=== PATIENT | female | born 1965 | race Caucasian/White ===

== ENCOUNTER 2018-03-17 13:17 | Emergency (ER) | payer BC, OTHER, SELFPAY ==
[2018-03-17] MEDS ORDERED: TORAdol 30 mg Injection IM ONE (13:48)
[2018-03-17] MEDS ORDERED: Norflex 60 MG/2 ML IM ONE (13:48)
[2018-03-17] MEDS ORDERED: TORAdol 30 mg Injection ONE (13:54)
--- NOTE | 2018-03-17 13:54 | ERPHSYRPT ---
- History of Present Illness Time Seen by Provider: 03/17/18 13:30 Source: patient Exam Limitations: clinical condition Physician History: PATIENT COMPLAINS OF NECK AND UPPER BACK PAIN X 3 WEEKS, PROGRESSIVELY WORSE. HAS RADIATION OF PAIN FROM NECK DOWN HER LEFT ARM. DENIES HISTORY OF TRAUMA OR INJURY. PAIN EXACERBATED UPON BENDING AND TWISTING OF TORSO. Timing/Duration: week(s) (3) Method of Injury: other (DENIES INJURY) Quality: sharp Back Pain Location: C-spine, T-spine Severity of Pain-Max: moderate Severity of Pain-Current: moderate Modifying Factors: Improves With: movement Associated Symptoms: denies symptoms Previous symptoms: same symptoms as today Allergies/Adverse Reactions: Penicillins Allergy (Verified 03/17/18 14:00) - Review of Systems Constitutional: No Fever, No Chills Eyes: No Symptoms Ears, Nose, & Throat: No Symptoms Respiratory: No Cough, No Dyspnea Cardiac: No Chest Pain, No Edema, No Syncope Abdominal/Gastrointestinal: No Abdominal Pain, No Nausea, No Vomiting, No Diarrhea Genitourinary Symptoms: No Dysuria Musculoskeletal: Back Pain, Neck Pain Skin: No Rash Neurological: No Dizziness, No Focal Weakness, No Sensory Changes Psychological: No Symptoms Endocrine: No Symptoms All Other Systems: Reviewed and Negative - Nursing Vital Signs Nursing Vital Signs: Initial Vital Signs Temperature 97 F 03/17/18 13:37 Pulse Rate 87 03/17/18 13:37 Respiratory Rate 18 03/17/18 13:37 Blood Pressure 151/88 03/17/18 13:37 O2 Sat by Pulse Oximetry 99 03/17/18 13:37 Pain Scale Pain Intensity [] 8 Pain Intensity 6 - Physical Exam General Appearance: no apparent distress, alert Neck Exam: normal inspection, supple, other (THERE IS MODERATE POST CERVICAL SPINAL TENDERNESS) Respiratory Exam: normal breath sounds Cardiovascular Exam: regular rate/rhythm, normal heart sounds Back Exam: normal inspection, normal range of motion, decreased range of motion , muscle spasm (THERE IS PARASPINAL THORACIC TENDERNESS T-2 TO T-6) Peripheral Pulses: carotid (R): 2+, carotid (L): 2+, femoral (R): 2+, femoral (L ): 2+, dorsalis-pedis (R): 2+, dorsalis-pedis (L): 2+ Neurologic Exam: alert, oriented x 3, 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 SMALL OSTEOPHYTES ARE SEEN C5-C7, SMALL OSTEOPHYTES C5-C6) Thoracic Spine CT Interpretation: Tele-radiologist Report (MINIMAL MULTILEVELDEGENERATIVE DISC AND SPINAL DISEASE, THERE IS A BROAD BASED OSSTEOPHYTE AT T-11 TO T12) Ordered Tests: Active Orders 24 hr Category Date Time Status CERVICAL SPINE WO CONTRAST [CT] Stat Exams 03/17/18 13:47 Taken THORACIC SPINE W/O CONTRAST [CT] Stat Exams 03/17/18 13:49 Taken Medication Summary Discontinued Medications Generic Name Dose Route Start Last Admin Trade Name Freq PRN Reason Stop Dose Admin Ketorolac Tromethamine 60 mg 03/17/18 13:48 03/17/18 14:02 Toradol 30 Mg Injection IM 03/17/18 13:49 60 mg STAT ONE Administration Ketorolac Tromethamine Confirm 03/17/18 13:54 Toradol 30 Mg Injection Administered 03/17/18 13:55 Dose 60 mg .ROUTE .STK-MED ONE Morphine Sulfate 4 mg 03/17/18 16:09 03/17/18 16:22 Morphine Sulfate 4 Mg Inj IM 03/17/18 16:10 4 mg STAT ONE Administration Morphine Sulfate Confirm 03/17/18 16:20 Morphine Sulfate 4 Mg Inj Administered 03/17/18 16:21 Dose 4 mg .ROUTE .STK-MED ONE Orphenadrine Citrate 60 mg 03/17/18 13:48 03/17/18 14:03 Norflex 60 Mg/2 Ml IM 03/17/18 13:49 60 mg STAT ONE Administration Orphenadrine Citrate Confirm 03/17/18 13:55 Norflex 60 Mg/2 Ml Administered 03/17/18 13:56 Dose 60 mg .ROUTE .STK-MED ONE Promethazine HCl 25 mg 03/17/18 16:09 03/17/18 16:22 Phenergan 25 Mg Inj IM 03/17/18 16:10 25 mg STAT ONE Administration Promethazine HCl Confirm 03/17/18 16:19 Phenergan 25 Mg Inj Administered 03/17/18 16:20 Dose 25 mg .ROUTE .STK-MED ONE - Progress Progress: improved, pain not gone completely Progress Note: 03/17/18 16:14 TORADOL 60MG IM, NORFLEX 60MG IM 03/17/18 16:16 Counseled pt/family regarding: diagnosis, need for follow-up - Departure Time of Disposition: 16:45 Departure Disposition: Home Clinical Impression: CERVICAL SPINE DEGENERATIVE DISC DISEASE, THORACIC SPINE DEGENERATIVE ADRIAN Condition: Stable Critical Care Time: No Referrals: RUT MAYES [Primary Care Provider] - Additional Instructions: FOLLOWUP WITH YOUR FAMILY PHYSICIAN FOR EVALUATION, PHYSICAL THERAPY. TORADOL 10MG EVERY 6 HOURS NEEDED ALONG WITH NORFLEX 100MG TWICE DAILY FOR MUSCLE SPASM. Prescriptions: Ketorolac Tromethamine [Toradol] 10 mg PO Q6HPRN PRN #20 tablet PRN Reason: Pain Orphenadrine Citrate 100 mg [Norflex 100 MG Tablet] 100 mg PO BID PRN #10 tab PRN Reason: Muscle Spasms
[2018-03-17] MEDS ORDERED: Norflex 60 MG/2 ML ONE (13:55)
[2018-03-17] MEDS ORDERED: Phenergan 25 MG INJ IM ONE (16:09)
[2018-03-17] MEDS ORDERED: MORPHINE SULFATE 4 MG INJ IM ONE (16:09)
[2018-03-17] MEDS ORDERED: Phenergan 25 MG INJ ONE (16:19)
[2018-03-17] MEDS ORDERED: MORPHINE SULFATE 4 MG INJ ONE (16:20)
[2018-03-17 16:45] VITALS: BP 133/80; PULSE 82; O2SAT 99
--- NOTE | 2018-03-17 20:40 | XRAY ---
Indication: Neck pain 3 weeks. No known injury. Multiple contiguous axial images obtained through the cervical spine. Sagittal and coronal reformatted images obtained. Comparison: Cervical radiograph January 30, 2007. Axial images negative for acute fracture, suspicious bony lesions, or spinal canal stenosis. There is now mild C5-C7 degenerative endplate spurring. Sagittal and coronal reformatted images demonstrates new cervical lordotic reversal, positional versus paraspinal spasm. New C5-C6 disc space narrowing. No acute compression fracture, subluxation, or jumped facet. Normal-appearing craniocervical junction. Visualized noncontrasted soft tissues demonstrates minimal right ethmoid and right maxillary sinus disease. Base of the brain and lung apices unremarkable. Impression: 1. New C5-C7 degenerative disc disease and cervical lordotic reversal. 2. Remaining CT cervical spine negative. 3. Incidental paranasal sinus disease. Comment: Preliminary interpretation was made by [facility]. No discrepancy. CTDI 66.59
--- NOTE | 2018-03-17 20:44 | XRAY ---
Indication: Upper back pain 3 weeks. No known injury. Multiple contiguous axial images obtained through the thoracic spine. Sagittal and coronal reformatted images obtained. Comparison: None. Axial images negative for acute fracture, suspicious bony lesions, or spinal canal stenosis. Old right 12 rib fracture. Minimal multilevel degenerative endplate spurring. Sagittal and coronal reformatted images demonstrates normal alignment with vertebral body heights and disc spaces maintained. No acute compression fracture or subluxation. No acute compression fracture, subluxation, or jumped facet. Visualized noncontrasted soft tissues demonstrates mild bilateral dependent atelectasis and right posterior gutter calcified granuloma. Impression: 1. Minimal multilevel degenerative spondylosis and old right 12 rib fracture. 2. Remaining CT thoracic spine negative. Comment: Preliminary interpretation was made by [facility]. No discrepancy. CTDI 66.59
== END 2018-03-17 16:43 | disposition home or self-care (01) ==
LOC: ED 13:17
DX: M50.320 Other cervical disc degeneration, mid-cervical region, unspecified level (principal); M54.2 Cervicalgia; M54.9 Dorsalgia, unspecified
CPT/HCPCS: 72125; 72128; 96372; 99284; J1885; J2270; J2360; J2550

== ENCOUNTER 2018-05-27 15:55 | Emergency (ER) | payer OTHER ==
[2018-05-27 16:09] VITALS: O2SAT 99
[2018-05-27] MEDS ORDERED: Sensorcaine 0.25% 10 ML ONE (16:11)
[2018-05-27] MEDS ORDERED: BACIGUENT PACKET ONE (16:11)
[2018-05-27] MEDS: MARCAINE 0.25% PF/ EPI 1:200,000 IJ ONE (16:14)
--- NOTE | 2018-05-27 16:14 | ERPHSYRPT ---
- History of Present Illness Time Seen by Provider: 05/27/18 15:57 Source: patient Exam Limitations: no limitations Patient Subjective Stated Complaint: Cut right hand pointer finger on a broad head arrow Triage Nursing Assessment: Pt c/o of a 2cm laceration to the right pointer finger above the top knuckle, cut on a broad head arrow, vitals wnl, not bleeding at this time, rates pain 3/10, denies any other problems Physician History: accidently cut distal phalanx right index finger on paula arrow at home; no other injuries or complaints; immun up to date; right handed; no other injury or complaints Occurred: just prior to arrival, this afternoon Method of Injury: incised Quality: constant, aching Severity of Pain-Max: moderate Severity of Pain-Current: mild Extremities Pain Location: 2nd finger: right (distal phalanx) Modifying Factors: Improves With: nothing Associated Symptoms: none Allergies/Adverse Reactions: Penicillins Allergy (Verified 05/27/18 16:08) codeine Adverse Reaction (Verified 05/27/18 16:10) Hx Tetanus, Diphtheria Vaccination/Date Given: No - Review of Systems Constitutional: No Symptoms Eyes: No Symptoms Ears, Nose, & Throat: No Symptoms Respiratory: No Cough, No Dyspnea, No Wheezing Cardiac: No Chest Pain, No Palpitations, No Syncope Abdominal/Gastrointestinal: No Abdominal Pain, No Nausea, No Vomiting, No Diarrhea Genitourinary Symptoms: No Symptoms Musculoskeletal: Injury (lac left distal index finger) Skin: No Symptoms Neurological: No Symptoms Psychological: No Symptoms - Past Medical History Pertinent Past Medical History: Yes Neurological History: Migraines Cardiac History: High Cholesterol, Hypertension Respiratory History: Bronchitis Endocrine Medical History: Diabetes Type II Musculoskeletal History: Fractures Other Medical History: Multiple L MT fractures. - Past Surgical History Past Surgical History: Yes Female Surgical History: Tubal Ligation Other Surgical History: sinus - Social History Smoking Status: Never smoker Exposure to second hand smoke: No Alcohol Use: None Drug Use: none Patient Lives Alone: No Significant Family History: diabetes - Female History Hx Now: No (tubal) - Nursing Vital Signs Nursing Vital Signs: Initial Vital Signs Temperature 97.8 F 05/27/18 15:59 Pulse Rate 85 05/27/18 15:59 Blood Pressure 122/85 05/27/18 15:59 O2 Sat by Pulse Oximetry 99 05/27/18 15:59 Pain Scale Pain Intensity 3 - Physical Exam General Appearance: mild distress, alert Shoulder Exam: normal inspection, non-tender, no evidence of injury, normal ROM Elbow/Forearm Exam: normal inspection, non-tender, no evidence of injury, normal ROM Wrist Exam: normal inspection, non-tender, no evidence of injury, normal ROM Hand Exam: non-tender, no evidence of injury, normal ROM, laceration (right index finger distal 2.6 cm), No normal inspection (except for 2.0 cm lac to distal right index finger), No bone tenderness, No deformity, No infection Neuro/Tendon Exam: normal sensation, normal motor functions, normal tendon functions, responds to pain, no evidence tendon injury Mental Status Exam: alert, oriented x 3, cooperative Skin Exam: normal color, warm, dry, laceration (right index finger distal 2.6 cm ), No rash SpO2 Interpretation: normal SpO2: 99 O2 Delivery: Room Air Procedures - Laceration/Wound Repair Right Lateral Distal Finger Wound Location: Right, hand (distal right index finger) Wound Length (cm): 2.6 Wound's Depth, Shape: linear, into subcut Wound Explored: clean Irrigated: Yes Hibiclens Prep: Yes Anesthesia: marcaine 0.25 (digital block) Volume Anesthetic (ccs): 5 Wound Repaired With: sutures Suture Size/Type: 4-0 Number of Sutures: 4 Layer Closure?: No Sterile Dressing Applied?: Yes Splint Applied?: No Sling Applied?: No - Course Nursing assessment & vital signs reviewed: Yes Ordered Tests: Active Orders 24 hr Category Date Time Status Prepare for Sutures STAT Care 05/27/18 16:08 Active Sutures STAT Care 05/27/18 16:09 Active Wound Care STAT Care 05/27/18 16:08 Active Medication Summary Discontinued Medications Generic Name Dose Route Start Last Admin Trade Name Freq PRN Reason Stop Dose Admin Bacitracin Zinc 0.9 gm 05/27/18 16:08 Baciguent Packet TP 05/27/18 16:09 STAT ONE Bacitracin Zinc Confirm 05/27/18 16:11 Baciguent Packet Administered 05/27/18 16:12 Dose 1 gm .ROUTE .STK-MED ONE Bupivacaine HCl Confirm 05/27/18 16:11 Sensorcaine 0.25% 10 Ml Administered 05/27/18 16:12 Dose 10 ml .ROUTE .STK-MED ONE Bupivacaine HCl 5 ml 05/27/18 16:12 05/27/18 16:21 Sensorcaine 0.25% 10 Ml IJ 05/27/18 16:13 5 ml STAT ONE Administration Bupivacaine HCl/Epinephrine Bitart 5 ml 05/27/18 16:08 05/27/18 16:14 Marcaine 0.25% Pf/ Epi 1:200,000 IJ 05/27/18 16:09 Not Given STAT ONE - Progress Progress: improved Progress Note: 05/27/18 16:44 good anesthesia with digital block; instructions given Counseled pt/family regarding: diagnosis, need for follow-up - Departure Time of Disposition: 16:44 Departure Disposition: Home Clinical Impression: 2.6 cm laceration distal right index fin Condition: Stable Critical Care Time: No Referrals: QUETA OJEDA [Primary Care Provider] - Instructions: Laceration Repair With Stitches (DC) Additional Instructions: clean and dry; SR 7 days; bacitracin Follow-up with family doctor as directed. Call for appointment. Return if any problems. If you smoke please stop. Call or follow up with your family doctor for assistance if you need it to stop. Please wear your seatbelt when driving. Have a nice day. Thank you for allowing us to participate in your care today. :o) Dr Raphael Belle
[2018-05-27] MEDS: Sensorcaine 0.25% 10 ML IJ ONE (16:21)
[2018-05-27 16:47] VITALS: BP 110/75; PULSE 81
[2018-05-27] MEDS: BACIGUENT PACKET TP ONE (16:51)
== END 2018-05-27 16:51 | disposition home or self-care (01) ==
LOC: ED 15:55
DX: S61.210A Laceration without foreign body of right index finger without damage to nail, initial encounter (principal); W26.8XXA Contact with other sharp object(s), not elsewhere classified, initial encounter; E11.9 Type 2 diabetes mellitus without complications; E78.00 Pure hypercholesterolemia, unspecified; I10 Essential (primary) hypertension
CPT/HCPCS: 12002; 96372; 99284; A9270-GY

== ENCOUNTER 2018-06-07 15:20 | Emergency (ER) | payer OTHER ==
[2018-06-07] MEDS ORDERED: Norco 10/325 MG Tablet PO ONE (16:18)
[2018-06-07] MEDS ORDERED: Norco 10/325 MG Tablet ONE (16:20)
[2018-06-07 17:12] VITALS: BP 163/104; PULSE 80; O2SAT 99
--- NOTE | 2018-06-07 17:16 | XRAY ---
Indication: Pain following fall. Comparison: June 05, 2017. 3 views of the left ankle demonstrates soft tissue swelling and minimally displaced corner fracture involving the distal tibia posteriorly of uncertain chronicity. Elsewhere small heel spurs and old 2nd/3rd/5th metatarsal shaft fractures. No other bony, articular, or soft tissue abnormalities.
--- NOTE | 2018-06-07 17:18 | XRAY ---
Indication: Pain following fall. Comparison: None 2 views of the left lower leg demonstrates nondisplaced/non-angulated acute spiral fracture involving the proximal fibular shaft. Ankle/foot reported separately.
--- NOTE | 2018-06-07 17:19 | XRAY ---
Indication: Pain following fall. Comparison: June 05, 2017. 3 nonweightbearing views of the left foot demonstrates new minimally displaced corner fracture involving the distal tibia posteriorly of uncertain chronicity. Stable small heel spurs and old 2nd/5th metatarsal shaft fractures with new finding old 3rd metatarsal shaft fracture. No other bony, articular, or soft tissue abnormalities.
--- NOTE | 2018-06-07 17:59 | ERPHSYRPT ---
- History of Present Illness Time Seen by Provider: 06/07/18 15:35 Source: patient Exam Limitations: clinical condition Patient Subjective Stated Complaint: pt states was walking down a ramp on a trailer and slipped. she said she fell onto her bottom, catching herself with her left hand. left foot was turned under her bottom, states pain radiates up her calf Triage Nursing Assessment: pt present to ED in a wheelchair, with walking boot in place. bruising noted to left inner ankle with small abrasion noted. 2 small abrasions noted to left thumb. no obvious deformity noted to foot or ankle Physician History: PATIENT WITH A HISTORY OF TYPE 2 DIABETES, HYPERTENSION, AND DEPRESSION FELL WHILE WALKING DOWN RAMP SUSTAINED INJURY TO LEFT ANKLE AND DESIR. HAS SEVERE PAIN DISCOMFORT, UNABLE TO BEAR WEIGHT. DENIES ASSOCIATED HEAD, NECK OR BACK INJURY. Occurred: just prior to arrival Reason for Fall: slipped Injuries/Pain Location: lower extremity Loss of Consciousness: no loss of consciousness Quality: sharpness, throbbing Severity of Pain-Max: moderate Severity of Pain-Current: moderate Modifying Factors: Improves With: movement Allergies/Adverse Reactions: Penicillins Allergy (Verified 05/27/18 16:08) codeine Adverse Reaction (Verified 05/27/18 16:10) Home Medications: Dulaglutide [Trulicity] 0.75 mg SQ BID 06/07/18 [History] Duloxetine HCl [Cymbalta] 60 mg PO HS 06/07/18 [History] Furosemide 20 mg [Lasix 20 mg] 20 mg PO DAILY 06/07/18 [History] Lisinopril 40 mg PO DAILY 06/07/18 [History] Metformin HCl [Glucophage] 1,000 mg PO BID 06/07/18 [History] Potassium Chloride 10 Meq Tab* [Klor Con 10 MEQ] 10 meq PO DAILY 06/07/18 [ History] Hx Tetanus, Diphtheria Vaccination/Date Given: No Hx Influenza Vaccination/Date Given: Yes Hx Pneumococcal Vaccination/Date Given: No Immunizations Up to Date: Yes - Review of Systems Constitutional: No Symptoms Musculoskeletal: Injury, Joint Pain, Joint Swelling Neurological: No Symptoms Psychological: No Symptoms - Past Medical History Pertinent Past Medical History: Yes Neurological History: Migraines Cardiac History: High Cholesterol, Hypertension Respiratory History: Bronchitis Endocrine Medical History: Diabetes Type II Musculoskeletal History: Fractures GI Medical History: No Pertinent History History: No Pertinent History Psycho-Social History: Depression Female Reproductive Disorders: No Pertinent History Other Medical History: Multiple L MT fractures. - Past Surgical History Past Surgical History: Yes Female Surgical History: Tubal Ligation Other Surgical History: sinus - Social History Smoking Status: Never smoker Exposure to second hand smoke: No Alcohol Use: None Drug Use: none Patient Lives Alone: No Significant Family History: diabetes - Female History Hx Now: No - Nursing Vital Signs Nursing Vital Signs: Initial Vital Signs Temperature 98.1 F 06/07/18 15:20 Pulse Rate 75 06/07/18 15:20 Respiratory Rate 18 06/07/18 15:20 Blood Pressure 150/105 06/07/18 15:20 O2 Sat by Pulse Oximetry 98 06/07/18 15:20 Pain Scale Pain Intensity 10 - Physical Exam General Appearance: mild distress Back Exam: normal inspection Extremity Exam: joint swelling, bony point tenderness, swelling, tenderness ( TENDERNESS OVER LEFT FIBULAR HEAD, NO ECCHYMOSIS OR DEFORMITY), other (RIGHT ANKLE FULL RANGE OF MOTION WITH TENDERNESS LEFT MEDIAL MALLEOLUS) Peripheral Pulses: carotid (R): 2+, carotid (L): 2+, femoral (R): 2+, femoral (L ): 2+, dorsalis-pedis (R): 2+, dorsalis-pedis (L): 2+ Neurologic Exam: alert, oriented x 3 SpO2 Interpretation: normal SpO2: 99 Ordered Tests: Active Orders 24 hr Category Date Time Status Crutches STAT Care 06/07/18 17:51 Ordered Immobilizer STAT Care 06/07/18 17:52 Ordered Splint STAT Care 06/07/18 17:52 Ordered ANKLE (3 VIEWS) Stat Exams 06/07/18 16:33 Completed FOOT (MINIMUM 3 VIEWS) Stat Exams 06/07/18 16:33 Completed LOWER LEG Stat Exams 06/07/18 16:29 Completed Medication Summary Discontinued Medications Generic Name Dose Route Start Last Admin Trade Name Freq PRN Reason Stop Dose Admin Hydrocodone Bitart/Acetaminophen 1 tab 06/07/18 16:18 06/07/18 16:21 [place] 10/325 Mg Tablet PO 06/07/18 16:19 1 tab STAT ONE Administration Hydrocodone Bitart/Acetaminophen Confirm 06/07/18 16:20 [place] 10/325 Mg Tablet Administered 06/07/18 16:21 Dose 1 tab .ROUTE .STK-MED ONE - Progress Progress: improved, pain not gone completely Progress Note: 06/07/18 17:59 NORCO 02/[id number] ORALLY, APPLICATION SHORT LEG ORTHOGLASS SPLINT AND KNEE IMMOBLIZER, AND CRUTCHES Counseled pt/family regarding: diagnosis, need for follow-up, rad results - Departure Time of Disposition: 18:10 Departure Disposition: Home (1805) Clinical Impression: SPIRAL FRACTURE LEFT FIBULA HEAD, DISTAL LEFT TIBIA FRACTURE Condition: Stable Critical Care Time: No Referrals: QUETA OJEDA [Primary Care Provider] - Additional Instructions: FOLLOWUP WITH IN 3 DAYS WITH THE [facility] SUNDAY AT 9AM, 2018, WITH A COPY OF XRAY DISC. AMBULATE USING CRUTCHES NONWEIGHT BEARING LEFT FOOT. APPLY ICE OVER ANKLE AND BELOW KNEE EVERY 4 HOURS, 30 MINUTES FOR 48 HOURS WITH ELEVATION. NORCO 10/325 EVERY 6 HOURS NEEDED FOR PAIN. Prescriptions: Hydrocodone/APAP 10/325 mg [[place] 10/325 MG Tablet] 1 tab PO Q6H PRN PRN # 16 tablet MDD 4 PRN Reason: Pain
== END 2018-06-07 18:35 | disposition home or self-care (01) ==
LOC: ED 15:20
DX: S82.442A Displaced spiral fracture of shaft of left fibula, initial encounter for closed fracture (principal); S82.242A Displaced spiral fracture of shaft of left tibia, initial encounter for closed fracture; S90.02XA Contusion of left ankle, initial encounter; S90.512A Abrasion, left ankle, initial encounter; S60.312A Abrasion of left thumb, initial encounter; W10.2XXA Fall (on)(from) incline, initial encounter; E78.00 Pure hypercholesterolemia, unspecified; I10 Essential (primary) hypertension; F32.9 Major depressive disorder, single episode, unspecified; E11.9 Type 2 diabetes mellitus without complications; Z79.4 Long term (current) use of insulin; Z79.899 Other long term (current) drug therapy
CPT/HCPCS: 29126; 29515; 73590; 73610; 73630; 99284; A9270-GY

== ENCOUNTER 2019-12-03 10:26 | Emergency (ER) | payer OTHER ==
--- NOTE | 2019-12-03 10:28 | ERPHSYRPT ---
- History of Present Illness Time Seen by Provider: 12/03/19 10:28 Source: patient, family Exam Limitations: no limitations Physician History: This is a 54-year-old obese white female who has hypertension and is a [id number] diabetic and presents with a 4-day history of muscle skeletal pain in her back. She has had a similar episode in the past. Patient did not fall. She did not suffer any trauma or have an accident. She was doing some lifting of heavy cooler on Sunday afternoon. Symptoms have progressively worsened. Patient does not have chest pain she does not have shortness of breath. She has no cough symptoms. Timing/Duration: day(s) (4) Method of Injury: bending, lifting Quality: sharp (With movement and twisting), aching Back Pain Location: T-spine, paraspinous muscles (With radiation to right shoulder) Severity of Pain-Max: moderate Severity of Pain-Current: moderate Modifying Factors: Improves With: movement Associated Symptoms: muscle spasms Previous symptoms: same symptoms as today Allergies/Adverse Reactions: Penicillins Allergy (Verified 12/03/19 10:37) codeine Adverse Reaction (Verified 12/03/19 10:37) Home Medications: Dulaglutide [Trulicity] 0.75 mg SQ BID 06/07/18 [History] Duloxetine HCl [Cymbalta] 60 mg PO HS 06/07/18 [History] Furosemide 20 mg [Lasix 20 mg] 20 mg PO DAILY 06/07/18 [History] Lisinopril 40 mg PO DAILY 06/07/18 [History] Metformin HCl [Glucophage] 1,000 mg PO BID 06/07/18 [History] Potassium Chloride 10 Meq Tab* [Klor Con 10 MEQ] 10 meq PO DAILY 06/07/18 [History] Hx Tetanus, Diphtheria Vaccination/Date Given: No Hx Influenza Vaccination/Date Given: Yes Hx Pneumococcal Vaccination/Date Given: No Travel Risk - International Travel Have you traveled outside of the country in past 3 weeks: No - Coronavirus Screening Are you exhibiting any of the following symptoms?: No Close contact with a COVID-19 positive Pt in past 14-21 Days: No - Review of Systems Constitutional: No Symptoms Eyes: No Symptoms Ears, Nose, & Throat: No Symptoms Respiratory: No Symptoms Abdominal/Gastrointestinal: No Symptoms Genitourinary Symptoms: No Symptoms Musculoskeletal: Back Pain, No Fall, No Injury Skin: No Symptoms Neurological: No Symptoms Psychological: No Symptoms Endocrine: No Symptoms Hematologic/Lymphatic: No Symptoms Immunological/Allergic: No Symptoms All Other Systems: Reviewed and Negative - Past Medical History Pertinent Past Medical History: Yes Neurological History: No Pertinent History Cardiac History: Hypertension Respiratory History: No Pertinent History Endocrine Medical History: Diabetes Type II Musculoskeletal History: Arthritis, Fractures GI Medical History: No Pertinent History History: No Pertinent History Psycho-Social History: Depression Female Reproductive Disorders: No Pertinent History Other Medical History: Multiple L MT fractures. - Past Surgical History Past Surgical History: Yes Female Surgical History: Tubal Ligation Other Surgical History: sinus - Social History Smoking Status: Never smoker Exposure to second hand smoke: No Alcohol Use: None Drug Use: none Patient Lives Alone: No Significant Family History: diabetes - Nursing Vital Signs Nursing Vital Signs: Initial Vital Signs Temperature 97.8 F 12/03/19 10:30 Pulse Rate 72 12/03/19 10:30 Respiratory Rate 16 12/03/19 10:30 O2 Sat by Pulse Oximetry 100 12/03/19 10:30 Pain Scale Pain Intensity 8 - Physical Exam General Appearance: no apparent distress, alert, anxiety Eye Exam: PERRL/EOMI, eyes nml inspection Ears, Nose, Throat Exam: normal ENT inspection, moist mucous membranes Neck Exam: normal inspection, non-tender, supple, full range of motion Respiratory Exam: normal breath sounds, lungs clear, airway intact, No chest tenderness, No respiratory distress Cardiovascular Exam: regular rate/rhythm, normal heart sounds, normal peripheral pulses Gastrointestinal Exam: soft, normal bowel sounds, No tenderness, No guarding, No rebound Pelvic Exam: not done Rectal Exam: not done Back Exam: normal inspection, normal range of motion, muscle spasm, No CVA tenderness, No decreased range of motion Extremity Exam: normal inspection, normal range of motion, pelvis stable Neurologic Exam: alert, oriented x 3, cooperative, 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, normal mood/affect, nml cerebellar function, nml station & gait, sensation nml Skin Exam: normal color, warm, dry Lymphatic Exam: No adenopathy SpO2 Interpretation: normal O2 Delivery: Room Air Ordered Tests: Medication Summary Discontinued Medications Generic Name Dose Route Start Last Admin Trade Name Freq PRN Reason Stop Dose Admin Ketorolac Tromethamine 60 mg 12/03/19 10:47 12/03/19 11:01 Toradol 30 Mg Injection IM 12/03/19 10:48 60 mg STAT ONE Administration Ketorolac Tromethamine Confirm 12/03/19 10:51 Toradol 30 Mg Injection Administered 12/03/19 10:52 Dose 60 mg .ROUTE .STK-MED ONE Morphine Sulfate 4 mg 12/03/19 10:47 12/03/19 11:02 Morphine Sulfate 4 Mg Inj IM 12/03/19 10:48 4 mg STAT ONE Administration Morphine Sulfate Confirm 12/03/19 10:52 Morphine Sulfate 4 Mg Inj Administered 12/03/19 10:53 Dose 4 mg .ROUTE .STK-MED ONE Ondansetron HCl 4 mg 12/03/19 10:47 12/03/19 11:01 Zofran Odt 4 Mg PO 12/03/19 10:48 4 mg STAT ONE Administration Ondansetron HCl Confirm 12/03/19 10:52 Zofran Odt 4 Mg Administered 12/03/19 10:53 Dose 4 mg .ROUTE .STK-MED ONE - Progress Progress: unchanged Progress Note: 12/03/19 11:09 Patient wants oral Toradol to go along with her muscle relaxant. She does not want steroids. Counseled pt/family regarding: diagnosis, need for follow-up - Departure Departure Disposition: Home Clinical Impression: Back pain Condition: Stable Critical Care Time: No Referrals: QUETA OJEDA [Primary Care Provider] - Additional Instructions: Follow-up with your primary care physician for further management. Take your medication as prescribed. Prescriptions: Carisoprodol 350 mg [Soma 350 mg] 350 mg PO Q8H PRN PRN #10 tablet PRN Reason: Muscle Spasms Ketorolac Tromethamine [Toradol] 10 mg PO QID #12 tablet
[2019-12-03] MEDS ORDERED: ZOFRAN ODT 4 MG PO ONE (10:47)
[2019-12-03] MEDS ORDERED: MORPHINE SULFATE 4 MG INJ IM ONE (10:47)
[2019-12-03] MEDS ORDERED: TORAdol 30 mg Injection IM ONE (10:47)
[2019-12-03] MEDS ORDERED: TORAdol 30 mg Injection ONE (10:51)
[2019-12-03] MEDS ORDERED: ZOFRAN ODT 4 MG ONE (10:52)
[2019-12-03] MEDS ORDERED: MORPHINE SULFATE 4 MG INJ ONE (10:52)
[2019-12-03 11:28] VITALS: BP 141/93; PULSE 74; O2SAT 100
== END 2019-12-03 11:23 | disposition home or self-care (01) ==
LOC: ED 10:26
DX: M54.9 Dorsalgia, unspecified (principal); I10 Essential (primary) hypertension; X50.0XXA Overexertion from strenuous movement or load, initial encounter; R07.9 Chest pain, unspecified; E11.9 Type 2 diabetes mellitus without complications; Z79.4 Long term (current) use of insulin; M19.90 Unspecified osteoarthritis, unspecified site; Z79.899 Other long term (current) drug therapy
CPT/HCPCS: 96372; 99284; J1885; J2270; Q0162

== ENCOUNTER 2020-04-21 13:11 | Emergency (ER) | payer OTHER ==
--- NOTE | 2020-04-21 13:18 | ERPHSYRPT ---
- History of Present Illness Time Seen by Provider: 04/21/20 13:17 Source: patient Exam Limitations: no limitations Physician History: This is a 54-year-old white female with a history of chronic recurring migraine headaches who presents with her typical migraine headache that is been present for 3 days. She has tried Excedrin migraine medication as well as Imitrex without benefit. Patient denies trauma to her head. Patient is obese. She has a history of diabetes and hypertension. She also has a history of arthritis and depression. Patient does have light sensitivity. She also complains of bilateral earaches. She has had no fever. She denies cough. She denies myalgias and arthralgias. Timing/Duration: day(s) (3) Head Pain Location: global Severity of Pain-Max: moderate Severity of Pain-Current: moderate Recent Head Trauma: no recent headache/trauma, chronic headaches Modifying Factors: Improves With: exposure to light, noise Associated Symptoms: sensitive to light, No facial pain, No fever/chills, No nausea/vomiting, No neck pain, No vision changes, No visual disturbance Previous symptoms: same symptoms as today Allergies/Adverse Reactions: Penicillins Allergy (Verified 04/21/20 13:33) codeine Adverse Reaction (Verified 04/21/20 13:33) Home Medications: Duloxetine HCl [Cymbalta] 60 mg PO HS 06/07/18 [History] Furosemide 20 mg [Lasix 20 mg] 20 mg PO DAILY 06/07/18 [History] Lisinopril 40 mg PO DAILY 06/07/18 [History] Metformin HCl [Glucophage] 1,000 mg PO BID 06/07/18 [History] Potassium Chloride 10 Meq Tab* [Klor Con 10 MEQ] 10 meq PO DAILY 06/07/18 [History] Hx Tetanus, Diphtheria Vaccination/Date Given: No Hx Influenza Vaccination/Date Given: Yes Hx Pneumococcal Vaccination/Date Given: No Travel Risk - International Travel Have you traveled outside of the country in past 3 weeks: No - Coronavirus Screening Are you exhibiting any of the following symptoms?: No Close contact with a COVID-19 positive Pt in past 14-21 Days: No - Review of Systems Constitutional: No Symptoms Eyes: No Symptoms Ears, Nose, & Throat: No Symptoms Respiratory: No Symptoms Cardiac: No Symptoms Abdominal/Gastrointestinal: No Symptoms Genitourinary Symptoms: No Symptoms Musculoskeletal: No Symptoms Skin: No Symptoms Neurological: Headache Psychological: No Symptoms Endocrine: No Symptoms Hematologic/Lymphatic: No Symptoms Immunological/Allergic: No Symptoms All Other Systems: Reviewed and Negative - Past Medical History Pertinent Past Medical History: Yes Neurological History: Migraines Cardiac History: Hypertension Respiratory History: No Pertinent History Endocrine Medical History: Diabetes Type II Musculoskeletal History: Arthritis, Fractures GI Medical History: No Pertinent History History: No Pertinent History Psycho-Social History: Depression Female Reproductive Disorders: No Pertinent History Other Medical History: Multiple L MT fractures. - Past Surgical History Past Surgical History: Yes Neuro Surgical History: No Pertinent History Cardiac: No Pertinent History Respiratory: No Pertinent History Gastrointestinal: No Pertinent History Genitourinary: No Pertinent History Musculoskeletal: Orthopedic Surgery Female Surgical History: Tubal Ligation Other Surgical History: sinus - Social History Smoking Status: Never smoker Exposure to second hand smoke: No Alcohol Use: None Drug Use: none Patient Lives Alone: No Significant Family History: diabetes - Nursing Vital Signs Nursing Vital Signs: Initial Vital Signs Temperature 97.8 F 04/21/20 13:20 Pulse Rate 71 04/21/20 13:20 Respiratory Rate 18 04/21/20 13:20 Blood Pressure 148/94 04/21/20 13:20 O2 Sat by Pulse Oximetry 99 04/21/20 13:20 Pain Scale Pain Intensity 7 - Physical Exam General Appearance: mild distress, alert, anxiety Eye Exam: PERRL/EOMI, eyes nml inspection Ears, Nose, Throat Exam: normal ENT inspection, TMs normal, moist mucous membranes Neck Exam: normal inspection, non-tender, supple, full range of motion Respiratory Exam: airway intact, No chest tenderness, No respiratory distress Gastrointestinal/Abdominal Exam: No tenderness Back Exam: normal inspection, normal range of motion, No CVA tenderness, No vertebral tenderness Extremity Exam: normal inspection, normal range of motion, pelvis stable Mental Status Exam: alert, oriented x 3, 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 Exam: normal hearing, normal speech, PERRL, tongue midline Coordination/Gait Exam: normal gait, normal cerebellar function Motor/Sensory Exam: no motor deficit, no sensory deficit Skin Exam: normal color, warm, dry Lymphatic Exam: No adenopathy SpO2 Interpretation: normal O2 Delivery: Room Air - Course Nursing assessment & vital signs reviewed: Yes Ordered Tests: Medication Summary Discontinued Medications Generic Name Dose Route Start Last Admin Trade Name Freq PRN Reason Stop Dose Admin Hydromorphone HCl 1 mg 04/21/20 13:29 Hydromorphone 1 Mg/Ml Injection IM 04/21/20 13:30 STAT ONE Promethazine HCl 25 mg 04/21/20 13:30 Phenergan 25 Mg Inj IM 04/21/20 13:31 STAT ONE - Progress Progress: improved, re-examined Air Movement: good Progress Note: 04/21/20 13:43 Medical decision making: This patient has her typical recurring, chronic migraine headache. She had no head trauma. I do not believe that a CAT scan of her head is necessary. Patient does not think a CAT scan of her head is necessary. Blood Culture(s) Obtained: No Antibiotics given: No Counseled pt/family regarding: diagnosis, need for follow-up - Departure Departure Disposition: Home Clinical Impression: Migraine headache Condition: Stable Critical Care Time: No Referrals: QUETA OJEDA [Primary Care Provider] - Additional Instructions: Call your prescribing doctor, or pain specialist, or neurologist for further management of your chronic recurring migraine headaches.
[2020-04-21] MEDS ORDERED: Hydromorphone 1 mg/ml Injection IM ONE (13:29)
[2020-04-21] MEDS ORDERED: Phenergan 25 MG INJ IM ONE (13:30)
[2020-04-21] MEDS ORDERED: Hydromorphone 1 mg/ml Injection ONE (13:38)
[2020-04-21] MEDS ORDERED: Phenergan 25 MG INJ ONE (13:38)
[2020-04-21 14:12] VITALS: BP 130/96; PULSE 82; O2SAT 97
== END 2020-04-21 14:11 | disposition home or self-care (01) ==
LOC: ED 13:11
DX: G43.909 Migraine, unspecified, not intractable, without status migrainosus (principal); E11.9 Type 2 diabetes mellitus without complications; I10 Essential (primary) hypertension; Z79.899 Other long term (current) drug therapy
CPT/HCPCS: 96372; 99284; J1170; J2550

== ENCOUNTER 2022-01-08 13:08 | Emergency (ER) | payer OTHER ==
[2022-01-08 13:43] VITALS: BP 142/81; PULSE 81; O2SAT 100
--- NOTE | 2022-01-08 13:48 | ERPHSYRPT ---
- History of Present Illness Time Seen by Provider: 01/08/22 13:43 Source: patient Exam Limitations: no limitations Patient Subjective Stated Complaint: L great toe pain Triage Nursing Assessment: pt to ED c/o L great toe pain onset yesterday. pt has had mulitple surgeries on L ankle, which is causing issues today she believes, pt states her tendons are pulled tight causing her toes to curl under and rub in her shoes causing irritation. denies pain now. hx diabetes- pt manages well per report. has appt with chaplain but is needing abx today. Physician History: c/o L great toe pain onset yesterday. pt has had mulitple surgeries on L ankle, which is causing issues today she believes, pt states her tendons are pulled tight causing her toes to curl under and rub in her shoes causing irritation. denies pain now. hx diabetes- pt manages well per report. has appt with chaplain but is needing abx today. Timing/Duration: yesterday Severity: mild Associated Symptoms: denies symptoms Allergies/Adverse Reactions: Penicillins Allergy (Verified 01/08/22 13:28) codeine Adverse Reaction (Verified 01/08/22 13:28) Home Medications: Duloxetine HCl [Cymbalta] 60 mg PO HS 06/07/18 [History] Furosemide 20 mg [Lasix 20 mg] 20 mg PO DAILY 06/07/18 [History] Metformin HCl [Glucophage] 1,000 mg PO BID 06/07/18 [History] Potassium Chloride Tab* [Klor Con 10 MEQ] 10 meq PO DAILY 06/07/18 [History] lisinopriL [Lisinopril] 40 mg PO DAILY 06/07/18 [History] Hx Tetanus, Diphtheria Vaccination/Date Given: No Hx Influenza Vaccination/Date Given: Yes Hx Pneumococcal Vaccination/Date Given: No Immunizations Up to Date: No Travel Risk - International Travel Have you traveled outside of the country in past 3 weeks: No - Coronavirus Screening Are you exhibiting any of the following symptoms?: No Close contact with a COVID-19 positive Pt in past 14-21 Days: No - Vaccine Status Have you recieved a Covid-19 vaccination: No - Review of Systems Constitutional: No Fever, No Chills Eyes: No Symptoms Ears, Nose, & Throat: No Symptoms Respiratory: No Cough, No Dyspnea Cardiac: No Chest Pain, No Edema, No Syncope Abdominal/Gastrointestinal: No Abdominal Pain, No Nausea, No Vomiting, No Diarrhea Genitourinary Symptoms: No Dysuria Musculoskeletal: Joint Swelling (left great toe pain , ulcer, swelling), No Back Pain, No Neck Pain Skin: No Rash Neurological: No Dizziness, No Focal Weakness, No Sensory Changes Psychological: No Symptoms Endocrine: No Symptoms All Other Systems: Reviewed and Negative - Past Medical History Pertinent Past Medical History: Yes Neurological History: Migraines Cardiac History: Hypertension Respiratory History: No Pertinent History Endocrine Medical History: Diabetes Type II Musculoskeletal History: Arthritis, Fractures GI Medical History: No Pertinent History History: No Pertinent History Psycho-Social History: Depression Female Reproductive Disorders: No Pertinent History Other Medical History: Multiple L MT fractures. - Past Surgical History Past Surgical History: Yes Neuro Surgical History: No Pertinent History Cardiac: No Pertinent History Respiratory: No Pertinent History Gastrointestinal: No Pertinent History Genitourinary: No Pertinent History Musculoskeletal: Orthopedic Surgery Female Surgical History: Tubal Ligation Other Surgical History: sinus - Social History Smoking Status: Never smoker Exposure to second hand smoke: No Alcohol Use: None Drug Use: none Patient Lives Alone: No Significant Family History: diabetes - Nursing Vital Signs Nursing Vital Signs: Initial Vital Signs Temperature 97.6 F 01/08/22 13:29 Pulse Rate 81 01/08/22 13:29 Respiratory Rate 20 01/08/22 13:29 Blood Pressure 142/81 01/08/22 13:29 O2 Sat by Pulse Oximetry 100 01/08/22 13:29 Pain Scale Pain Intensity 0 - Physical Exam General Appearance: no apparent distress, alert Eye Exam: PERRL/EOMI, eyes nml inspection Ears, Nose, Throat Exam: normal ENT inspection, TMs normal, pharynx normal, moist mucous membranes Neck Exam: normal inspection, non-tender, supple, full range of motion Respiratory Exam: normal breath sounds, lungs clear, No respiratory distress Cardiovascular Exam: regular rate/rhythm, normal heart sounds, normal peripheral pulses Gastrointestinal/Abdomen Exam: soft, normal bowel sounds, No tenderness, No mass Back Exam: normal inspection, normal range of motion, No CVA tenderness, No vertebral tenderness Extremity Exam: normal inspection, normal range of motion, pelvis stable, inflammation (left great toe), joint swelling, swelling, tenderness Neurologic Exam: alert, oriented x 3, cooperative, normal mood/affect, nml cerebellar function, nml station & gait, sensation nml, No motor deficits Skin Exam: normal color, warm, dry, No rash Lymphatic Exam: No adenopathy SpO2: 100 - Course Nursing assessment & vital signs reviewed: Yes - Progress Progress: unchanged Counseled pt/family regarding: diagnosis, need for follow-up - Departure Departure Disposition: Home Clinical Impression: Cellulitis of great toe, left Diabetic foot ulcer Qualifiers: Diabetic foot ulcer location: toe Diabetes mellitus type: type 2 Laterality: left Non-pressure ulcer stage: limited to breakdown of skin Qualified Code(s): E11.621 - Type 2 diabetes mellitus with foot ulcer; L97.521 - Non-pressure chronic ulcer of other part of left foot limited to breakdown of skin Condition: Stable Critical Care Time: No Referrals: QUETA OJEDA NP [Primary Care Provider] - Follow up/PCP as directed Instructions: Diabetic Foot Ulcer (DC), Foot Care for Diabetics Additional Instructions: Discharge/Care Plan HELEN BAL was seen on 01/08/22 in the Emergency Room. The patient was counseled regarding Diagnosis,Lab results, Imaging studies, need for follow up and when to return to the Emergency Room. Prescriptions given: Discharge Note I have spoken with the patient and/or caregivers. I have explained the patient's condition, diagnosis and treatment plan based on the information available to me at this time. I have answered the patient's and/or caregiver's questions and addressed any concerns. The patient and/or caregivers have as good understanding of the patient's diagnosis, condition and treatment plan as can be expected at this point. The vital signs have been stable. The patient's condition is stable and appropriate for discharge from the emergency department. The patient will pursue further outpatient evaluation with the primary care physician or other designated or consulting physician as outlined in the discharge instructions. The patient and/or caregivers are agreeable to this plan of care and follow-up instructions have been explained in detail. The patient and/or caregivers have received these instruction. The patient/and or caregivers are aware that any significant change in condition or worsening of symptoms should prompt an immediate return to this or the closest emergency department or call 911. HELEN BAL was seen on 01/08/22 n the Emergency Room. At that time you were treated for an emergent condition, during your visit Laboratory, Radiology and/or other procedures may have been ordered. It is very important that you follow-up with your Primary Care Physician QUETA OJEDA within the next 24-48 hours to review your Emergency Room visit and the final results of testing that was ordered. Some test results such as Urine Cultures, Blood Cultures, and other cultures if ordered will not be finalized for 24-48 hours. If you do not have a Primary Care Provider please call the medical records department at [phone] ext [phone] to obtain a copy of your results or you may sign into our patient portal to obtain these results by visiting us @ [email or web address] and completing the following steps: 1. Click on the Patient Portal link 2. Click the Patient Self Enrollment Link to complete the enrollment form and entering your 3. Once the enrollment form is completed you will receive an email with a temporary ID and password at the email address you provided. 4. Next choose a user name and password. Your user name must be at least 4 characters long and your password must be at least 4 characters long. 5. Choose a security question from the list and provide your answer to the question. If you already have signed into the Health Portal you may access your Health Care Information 27/11 by the following steps: 1. Login to our website @ [email or web address] 2. Enter your original user name and password. FAQS The [facility] Health Portal is an online tool that contains your Lab Results, Radiology Reports, Visit History, Discharge Instructions and Health Summary Lab and Radiology Results will not be available for 72 hours on the portal. The Portal is a secure site, passwords are encryted and URLs are re-written so they cannot be copied and pasted. You and authorized family members are the only ones who can access your Portal. Also there is a timeout feature that protects your information if you leave the Portal page open. If you have technical difficulty please use the Contact Us link on the page this will allow you to submit any questions you have regarding the Portal or you may contact the Medical Record Department at [phone] ext [phone]. Prescriptions: Levofloxacin [Levaquin 500 MG Tablet] 500 mg PO QAM #10 tablet
== END 2022-01-08 14:00 | disposition home or self-care (01) ==
LOC: ED 13:08
DX: L03.032 Cellulitis of left toe (principal); E11.621 Type 2 diabetes mellitus with foot ulcer; L97.521 Non-pressure chronic ulcer of other part of left foot limited to breakdown of skin; I10 Essential (primary) hypertension; Z79.84 Long term (current) use of oral hypoglycemic drugs; Z79.899 Other long term (current) drug therapy; Z28.310 Unvaccinated for COVID-19
CPT/HCPCS: 99281

== ENCOUNTER 2022-03-24 05:56 | Day surgery (SDC) | payer OTHER ==
[2022-03-24] MEDS ORDERED: Lactated Ringers 1,000 ML IV ONE ×2 (06:37→07:53)
[2022-03-24] MEDS ORDERED: CEFAZOLIN 2 GM-D5W BAG** 2 GM/50 ML ML IV ONE (06:37)
[2022-03-24] MEDS ORDERED: Lactated Ringers 1,000 ML IV SCH (07:00)
[2022-03-24] MEDS ORDERED: CEFAZOLIN 2 GM-D5W BAG** 2 GM/50 ML ML IV SCH (07:00)
[2022-03-24] MEDS ORDERED: DIPRIVAN 200 MG/20 ML IV ONE (07:47)
[2022-03-24] MEDS ORDERED: Versed 2 MG/2 ML Injection ONE (07:47)
[2022-03-24] MEDS ORDERED: SUBLIMAZE 100 MCG/2 ML ONE (07:47)
[2022-03-24] MEDS ORDERED: Zemuron 100 MG/10 ML ONE ×4 (07:49→09:50)
[2022-03-24] MEDS ORDERED: XYLOCAINE 1% HCL 20 ML MDV ONE (07:52)
[2022-03-24] MEDS ORDERED: Marcaine Mpf 0.5% Vial 30 Ml ONE (08:00)
[2022-03-24] MEDS ORDERED: PITRESSIN 20 UNITS ONE (08:53)
[2022-03-24] MEDS ORDERED: BRIDION 200MG/2ML IV ONE (09:50)
[2022-03-24] MEDS ORDERED: Ephedrine Sulfate 50 MG/ML ONE (09:50)
[2022-03-24] MEDS ORDERED: PHENYLEPHRINE HCL ONE (09:50)
[2022-03-24] MEDS ORDERED: Xylocaine-Mpf 2% 5 Ml Vial ONE (09:51)
[2022-03-24] MEDS ORDERED: Sodium Chloride 0.9% 1000 ML 1,000 ML ONE (09:52)
--- NOTE | 2022-03-24 09:55 | XRAY ---
Indication: Left foot interphalangeal joint arthrodesis and hammertoe correction. Intraoperative fluoroscopy provided for 1 minute 51 seconds. 16 digital spot images ultimately demonstrates fusion 1st-4th phalanges with intact hardware. Correlate with intraoperative findings/report.
--- NOTE | 2022-03-24 12:02 | XRAY ---
1 minute and 51 seconds fluoroscopy time in surgery for left foot arthrodesis ands hammertoe corrections.
[2022-03-24 12:32] VITALS: O2SAT 97
[2022-03-24 12:38] VITALS: BP 116/76; PULSE 78
--- NOTE | 2022-03-27 10:50 | OP ---
SURGERY DATE/TIME: 03/24/2022 0748 PREOPERATIVE DIAGNOSES: 1) Pain left foot. 2) Acquired hallux malleolus left great toe. 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 4) History of ankle arthrodesis. 5) Volkmann's contractures. POSTOPERATIVE DIAGNOSES: 1) Pain left foot. 2) Acquired hallux malleolus left great toe. 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 4) History of ankle arthrodesis. 5) Volkmann's contractures. PROCEDURES: 1) Hallux interphalangeal joint arthrodesis with Bravo tendosuspension. 2) Hammer toe correction 2, 3, 4 with arthrodesis. 3) Hammer toe correction with arthroplasty of the fifth digit left foot. SURGEON: Dilan Almaraz DPM. DOUGHNUT MACHINE OPERATOR: None. ANESTHESIA: General. HEMOSTASIS: Ankle tourniquet set to 250 mm of Mercury for 70 total tourniquet minutes. ESTIMATED BLOOD LOSS: Less than 5 cc. MATERIALS: One - 4.0 x 3.6 mm MAX variable pitch compression screw with a 13 x 10 Arcus staple and a 6 x 12 tenodesis screw as well as three 2.5 x 30 variable compression screws, 4-0 Monocryl, 3-0 Nylon. INJECTABLES: 30 cc of 1:1 mixture of 1% lidocaine plain and 0.5% bupivacaine plain injected in an ankle block-type fashion, 20 cc preoperatively and 10 cc postoperatively. INDICATION FOR SURGERY: Rika Franklin is a very pleasant 56-year-old female who is well known to my service for an ulceration to the distal tip of the left hallux. The patient had some concerns over this ulceration to the tip of the digit due to the fact that she had very similar process occur to her right digit which resulted in a partial amputation. At this time the patient is interested in salvage. We have done a lot of work over the course of the last several weeks in order to get the wound on the distal tip of the digit closed along with conservative care including but not limited to debridement and off-loading. At this time in order to prevent recontracture or recurrence of this issue, we decided to proceed with fixing the issue. The patient did have a traumatic injury that resulted in TTC (tibiotalocalcaneal) fusion. Since then, she has developed what appears to be a Volkmann's contracture where her digits have fallen into a claw toe deformity for all digits of 1 through 5. At this time, she would like to proceed with correction of all digits in order to eliminate the possibility of developing further ulceration and risking potential amputation at a later date due to her diabetes and previous history of ulceration and previous amputation. The patient understands there are no guarantees as to the outcome of surgical intervention. She understands all risks, benefits and complications of the surgical intervention including but not limited to infection, hematoma, seroma, possible delayed healing of skin, nonhealing of skin, delayed healing of bone, nonunion, possibility of painful irritating hardware, need for further surgical intervention at a later date. The patient is aware that surgery is not a guarantee of success for eliminating the patient's pain and possible other issues may arise as a result, this may require the need surgical intervention at a later date as well. Plenty of time was allowed for the patient to ask questions which were answered to patient's apparent satisfaction. It is with that we decided to proceed. DESCRIPTION OF PROCEDURE AND FINDINGS: The patient was brought into the OR and placed on the OR table in the supine position. At this time general anesthesia was administered until the patient was sedated. A well-padded ankle tourniquet was then applied to the patient's left ankle. The tourniquet was set to 250 mm of Mercury and the left lower extremity was prepped and draped in the typical sterile fashion. At this time attention was directed over the dorsal aspect of the first metatarsophalangeal joint as well as the proximal interphalangeal joint. Linear incision was made just medial to the extensor hallucis longus (EHL) being careful not to damage any neurovascular structures along the way. At this time the extensor hallucis longus tendon was identified and resected from its soft tissue attachments. As far distal as I could go, I resected the extensor hallucis longus tendon from its soft tissue attachments at the dorsal aspect of the distal phalanx. This was covered in a saline soaked gauze and placed at the proximal aspect of the incision. At this time a sagittal saw was utilized to make direct cuts within the head of the proximal phalanx and shaving off the cartilage of the distal phalangeal base. At this time copious amounts of sterile saline were utilized to flush the cartilage out of the site. Fenestration was utilized to fenestrate the site and a K-wire was then retrograded out of the distal tip of the hallux and into the proximal phalangeal base. This position was deemed to be adequate and at this time a 4.0 x 36 MAC VPC screw was introduced. Following this, 13 x 10 Arcus staple was utilized to stabilize the site. Following this the contracture at the hallux was reduced. Following this the attention was directed back to the tendon where a drill hole was made and the tendon was sized for a 6 mm tenodesis screw. The extensor hallucis longus was pulled under tension to elevate the first metatarsal just slightly and secured into the bone. The remnant of the extensor hallucis longus was looped back upon itself and secured to the extensor hallucis brevis which was then which was then tenodesed in a fashion that elevated the hallux relative to the position of the forefoot just slightly dorsiflexed relative to the longitudinal axis of the first ray. At this time attention was directed to the second, third and fourth digits where the same procedure was carried out. A transverse incision was made over the proximal interphalangeal joint. These were resected out utilizing a sagittal saw. The K-wires were then retrograded out of the distal tip of the digit in the corrected position and retrograded down into the base of the proximal phalanx. At this time for each digit, 2.5 x 30 VPC screw was then introduced from the distal tip making sure to cross all of the distal interphalangeal joint as well as proximal interphalangeal joint for all of the digits. Following this the fifth digit was inspected. Transverse incision was made due to the fact that there was no adductovarus rotation of the digit. Proximal interphalangeal joint was resected and the skin closure resulted in correction for the claw toe. The foot was then loaded. X-rays were taken. Fluoroscopy was utilized to identify adequate position of the digits. Copious amounts of sterile saline were then utilized to flush the surgical sites. The capsule was then repaired over the dorsal aspect of the first metatarsal utilizing 4-0 Monocryl in a continuous interlocking suture. Following this all subcutaneous tissue was coapted utilizing a simple buried-type fashion and then 3-0 Nylon was utilized to coapt the surgical incisions. The tourniquet was let down prior to closure at 70 total tourniquet minutes. Again, an injection was performed at the ankle consisting of 30 cc of a 1:1 mixture of 1% lidocaine plain and 0.5% bupivacaine plain throughout the procedure. A dressing consisting of Betadine, Adaptic, 4x4, Kerlix and DARA were then applied to the patient's left lower extremity. The patient was then reversed from anesthesia and returned to the postoperative anesthesia care unit with vital signs stable and vascular status intact. The patient handled the anesthesia as well as the procedure without significant complication. Postoperative orders as indicated in the patient's discharge chart.
== END 2022-03-24 11:55 | disposition home or self-care (01) ==
LOC: SDC 05:56
PROVIDERS: ATTEND Podiatrist Foot & Ankle Surgery
DX: M20.32 Hallux varus (acquired), left foot (principal); M20.42 Other hammer toe(s) (acquired), left foot; M79.672 Pain in left foot; T79.6XXA Traumatic ischemia of muscle, initial encounter; Z98.1 Arthrodesis status; E11.9 Type 2 diabetes mellitus without complications
CPT/HCPCS: 28285; 28760; 73630; 76000; 82947; C1713; J0690; J2250; J2370; J2704; J3010

== ENCOUNTER 2022-06-24 08:52 | Emergency (ER) | payer OTHER ==
[2022-06-24 09:14] VITALS: PULSE 75; O2SAT 97
--- NOTE | 2022-06-24 09:27 | ERPHSYRPT ---
- History of Present Illness Time Seen by Provider: 06/24/22 09:24 Source: patient Exam Limitations: no limitations Patient Subjective Stated Complaint: PT HERE FOR PAIN TO LEFT FOOT AFTER STEPPING DOWN OFF A TUCK LAST NIGHT, NO OTC MEDS, Triage Nursing Assessment: PT ALERT, RESP EASY, FACE MASK IN PLACE, SKIN W/D/P, NO SWELLING OR BRUISING TO LEFT FOOT, ABLE TO WALK BACK IN ROOM Physician History: Patient is 56-year-old female came to the emergency room after injured her left foot which she has a previous surgeries came to the ER with the pain on the lateral side of the left foot. Patient has some redness in that area but denies any deformity. Method of Injury: fell Occurred: yesterday Quality: constant Lower Extremities Pain: foot: left Modifying Factors: Improves With: cold therapy Associated Symptoms: none Allergies/Adverse Reactions: Penicillins Allergy (Verified 06/24/22 09:08) codeine Adverse Reaction (Verified 06/24/22 09:08) Home Medications: Duloxetine HCl [Cymbalta] 30 mg PO HS 06/07/18 [History] Furosemide 20 mg [Lasix 20 mg] 20 mg PO DAILY 06/07/18 [History] Potassium Chloride Tab* [Klor Con] 10 meq PO DAILY 06/07/18 [History] lisinopriL [Lisinopril] 40 mg PO DAILY 06/07/18 [History] Bupropion HCl Xl 150 mg [Wellbutrin XL 150 MG] 150 mg PO BID 03/17/22 [History] Fenofibrate,Micronized 145 mg* [Tricor 145 MG] 145 mg PO DAILY 03/17/22 [History] Guaifenesin 600 mg ER [Mucinex 600MG ER Tabs] 1,200 mg PO DAILY PRN PRN 03/17/22 [History] Pravastatin Sodium 20 mg PO DAILY 03/17/22 [History] Rizatriptan Benzoate [Rizatriptan] 10 mg PO DAILY PRN PRN 03/17/22 [History] Sitagliptin Phosphate 50 MG [Januvia 50 MG] 100 mg PO DAILY 03/17/22 [History] Duloxetine HCl 30 mg [Cymbalta 30 MG Capsule] 30 mg PO DAILY 03/24/22 [History] Furosemide 20 mg [Lasix 20 mg] 20 mg PO DAILY 03/24/22 [History] Semaglutide [Ozempic] 0.5 mg PO WEEKLY 03/24/22 [History] Hx Tetanus, Diphtheria Vaccination/Date Given: No Hx Influenza Vaccination/Date Given: No Hx Pneumococcal Vaccination/Date Given: No Immunizations Up to Date: Yes Travel Risk - International Travel Have you traveled outside of the country in past 3 weeks: No - Coronavirus Screening Are you exhibiting any of the following symptoms?: No Close contact with a COVID-19 positive Pt in past 14-21 Days: No - Vaccine Status Have you recieved a Covid-19 vaccination: No - Review of Systems Constitutional: No Fever, No Chills Eyes: No Symptoms Ears, Nose, & Throat: No Symptoms Respiratory: No Cough, No Dyspnea Cardiac: No Chest Pain, No Edema, No Syncope Abdominal/Gastrointestinal: No Abdominal Pain, No Nausea, No Vomiting, No Diarrhea Genitourinary Symptoms: No Dysuria Musculoskeletal: Fall, Injury (left foot), Joint Pain (left foot), No Back Pain, No Neck Pain Skin: No Rash Neurological: No Dizziness, No Focal Weakness, No Sensory Changes Psychological: No Symptoms Endocrine: No Symptoms All Other Systems: Reviewed and Negative - Past Medical History Pertinent Past Medical History: Yes Neurological History: Migraines ENT History: No Pertinent History Cardiac History: No Pertinent History Respiratory History: No Pertinent History Endocrine Medical History: Diabetes Type II Musculoskeletal History: Arthritis, Fractures GI Medical History: No Pertinent History History: No Pertinent History Psycho-Social History: Depression Female Reproductive Disorders: No Pertinent History Other Medical History: Multiple L MT fractures. heart murmur - Past Surgical History Past Surgical History: Yes Neuro Surgical History: No Pertinent History Cardiac: No Pertinent History Respiratory: No Pertinent History Gastrointestinal: No Pertinent History Genitourinary: No Pertinent History Musculoskeletal: Orthopedic Surgery Female Surgical History: Section, Tubal Ligation Other Surgical History: sinus , 3 left ankle surgery, right big toe - Social History Smoking Status: Never smoker Exposure to second hand smoke: No Alcohol Use: None Drug Use: none Patient Lives Alone: No Significant Family History: diabetes - Nursing Vital Signs Nursing Vital Signs: Initial Vital Signs Temperature 97.3 F 06/24/22 09:13 Pulse Rate 75 06/24/22 09:13 Respiratory Rate 18 06/24/22 09:13 Blood Pressure 125/83 06/24/22 09:13 O2 Sat by Pulse Oximetry 97 06/24/22 09:13 Pain Scale Pain Intensity 4 - Physical Exam General Appearance: no apparent distress Eyes, Ears, Nose, Throat Exam: normal ENT inspection Neck Exam: normal inspection Cardiovascular/Respiratory Exam: chest non-tender Gastrointestinal/Abdominal Exam: non-tender Back Exam: normal inspection Hips Exam: bilateral: non-tender Legs Exam: bilateral leg: non-tender Knees Exam: bilateral knee: non-tender Ankle Exam: bilateral ankle: non-tender Foot Exam: left foot: pain, soft tissue tenderness SpO2: 97 - Course Nursing assessment & vital signs reviewed: Yes - Radiology Exams Foot X-ray Interpretation: Reviewed by me, Negative, No Fracture, No Subluxation Ordered Tests: Active Orders 24 hr Category Date Time Status FOOT (MINIMUM 3 VIEWS) Stat Exams 06/24/22 09:15 Taken - Progress Progress: improved, pain not gone completely Counseled pt/family regarding: diagnosis, need for follow-up, rad results Medical Desision Making - External Record(s) Reviewed Records reviewed as a part of evaluation & management: Urgent Care - Discussion of managment Agreed on:: Treatment plan, need for follow-up - Diagnostic Testing Diagnostic test were ordered, analyzed, and reviewed by me: Yes Radiological Interpretation: Interpreted by me, Reviewed by me, Discussed w/ radiologist - Risk of complications Low Risk: Low risk of morbidity from additional dx testing or treatment - Departure Departure Disposition: Home Clinical Impression: Pain in left foot Fall Qualifiers: Encounter type: initial encounter Qualified Code(s): W19.XXXA - Unspecified fall, initial encounter Condition: Stable Critical Care Time: No Referrals: QUETA OJEDA NP [Primary Care Provider] - Follow up/PCP as directed Instructions: Contusion (DC) Additional Instructions: Discharge/Care Plan HELEN BAL was seen on 06/24/22 in the Emergency Room. The patient was counseled regarding Diagnosis,Lab results, Imaging studies, need for follow up and when to return to the Emergency Room. Prescriptions given: Discharge Note I have spoken with the patient and/or caregivers. I have explained the patient's condition, diagnosis and treatment plan based on the information available to me at this time. I have answered the patient's and/or caregiver's questions and addressed any concerns. The patient and/or caregivers have as good understanding of the patient's diagnosis, condition and treatment plan as can be expected at this point. The vital signs have been stable. The patient's condition is stable and appropriate for discharge from the emergency department. The patient will pursue further outpatient evaluation with the primary care physician or other designated or consulting physician as outlined in the discharge instructions. The patient and/or caregivers are agreeable to this plan of care and follow-up instructions have been explained in detail. The patient and/or caregivers have received these instruction. The patient/and or caregivers are aware that any significant change in condition or worsening of symptoms should prompt an immediate return to this or the closest emergency department or call 911. HELEN BAL was seen on 06/24/22 n the Emergency Room. At that time you were treated for an emergent condition, during your visit Laboratory, Radiology and/or other procedures may have been ordered. It is very important that you follow-up with your Primary Care Physician QUETA OJEDA within the next 24-48 hours to review your Emergency Room visit and the final results of testing that was ordered. Some test results such as Urine Cultures, Blood Cultures, and other cultures if ordered will not be finalized for 24-48 hours. If you do not have a Primary Care Provider please call the medical records department at [phone] ext [phone] to obtain a copy of your results or you may sign into our patient portal to obtain these results by visiting us @ [email or web address] and completing the following steps: 1. Click on the Patient Portal link 2. Click the Patient Self Enrollment Link to complete the enrollment form and entering your 3. Once the enrollment form is completed you will receive an email with a temporary ID and password at the email address you provided. 4. Next choose a user name and password. Your user name must be at least 4 characters long and your password must be at least 4 characters long. 5. Choose a security question from the list and provide your answer to the question. If you already have signed into the Health Portal you may access your Health Care Information 27/11 by the following steps: 1. Login to our website @ [email or web address] 2. Enter your original user name and password. FAQS The [facility] Health Portal is an online tool that contains your Lab Results, Radiology Reports, Visit History, Discharge Instructions and Health Summary Lab and Radiology Results will not be available for 72 hours on the portal. The Portal is a secure site, passwords are encryted and URLs are re-written so they cannot be copied and pasted. You and authorized family members are the only ones who can access your Portal. Also there is a timeout feature that protects your information if you leave the Portal page open. If you have technical difficulty please use the Contact Us link on the page this will allow you to submit any questions you have regarding the Portal or you may contact the Medical Record Department at [phone] ext [phone].
[2022-06-24 10:47] VITALS: BP 93/72
--- NOTE | 2022-06-24 20:20 | XRAY ---
Indication: 5th metatarsal pain. Comparison: May 17, 2022 3 nonweightbearing views left foot unchanged again demonstrating 1st-4th toe fusion surgery with intact hardware, ankle fusion surgery with intact hardware, osteopenia, old 2nd/3rd/5th metatarsal fractures, old distal fibula fracture, heel spurs, and pes planus. No new/acute findings. Comment: Preliminary interpretation made by [facility]. No critical discrepancy.
== END 2022-06-24 10:49 | disposition home or self-care (01) ==
LOC: ED 08:52
DX: M79.672 Pain in left foot (principal); W19.XXXA Unspecified fall, initial encounter; E11.9 Type 2 diabetes mellitus without complications; Z79.84 Long term (current) use of oral hypoglycemic drugs; Z79.85 Long-term (current) use of injectable non-insulin antidiabetic drugs; Z79.899 Other long term (current) drug therapy; Z28.310 Unvaccinated for COVID-19
CPT/HCPCS: 73630; 99282

== ENCOUNTER 2022-10-30 14:10 | Inpatient (IN) | payer OTHER ==
[2022-10-30] MEDS ORDERED: Zofran 4 MG/2 ML VIAL IV PRN (16:42)
[2022-10-30] MEDS ORDERED: TYLENOL 325 MG PO PRN (16:42)
--- NOTE | 2022-10-30 16:51 | PCM.HP ---
History of Present Illness - Chief Complaint Chief Complaint: acute osteomyelitis of left 1st toe Date: 10/30/22 History of Present Illness: 57-year-old woman with a history of type 2 diabetes, hypertension, migraines, and multiple foot surgeries, who presents from Dr. Almaraz's office with concern for left first toe osteomyelitis. Patient has had multiple surgeries and implants in her left foot and ankle, including a fusion colleen from her ankle to her heel, as well as some different pins in her distal foot. She initially had worsening pain last week, and was put on outpatient Levaquin. However, she returned to clinic today with worsening redness, erythema, and edema around the toe, with drainage of fluid throughout the weekend, and some erythema tracking down along her extensor hallucis tendon. She is being admitted for IV antibiotics and possible evaluation for surgery given the presence of hardware in the foot that we do not want to get infected. She had an MRI in clinic on Sunday, but it was inconclusive because of the interference from the metal h ardware in her foot. Denies any systemic signs of infection, including no fevers, headaches, chills, nausea, or diarrhea. Her appetite has been doing well. Her diabetes has been overall fairly controlled on Ozempic and Januvia. - Review of Systems Constitutional: No Fever, No Chills, No Malaise Eyes: No Symptoms Ears, Nose, & Throat: No Symptoms Respiratory: No Symptoms Cardiac: No Symptoms Abdominal/Gastrointestinal: No Nausea, No Vomiting, No Diarrhea Genitourinary Symptoms: No Dysuria Musculoskeletal: Joint Pain Skin: Cellulitis Neurological: No Dizziness, No Focal Weakness, No Sensory Changes Psychological: No Symptoms Endocrine: No Symptoms Medications & Allergies Home Medications: Home Medication List Duloxetine HCl [Cymbalta] 30 mg PO HS 06/07/18 [History Confirmed 06/24/22] Furosemide 20 mg [Lasix 20 mg] 20 mg PO DAILY 06/07/18 [History Confirmed 06/24/22] Potassium Chloride Tab* [Klor Con] 10 meq PO DAILY 06/07/18 [History Confirmed 06/24/22] lisinopriL [Lisinopril] 40 mg PO DAILY 06/07/18 [History Confirmed 06/24/22] Bupropion HCl Xl 150 mg [Wellbutrin XL 150 MG] 150 mg PO BID 03/17/22 [History Confirmed 06/24/22] Fenofibrate,Micronized 145 mg* [Tricor 145 MG] 145 mg PO DAILY 03/17/22 [History Confirmed 06/24/22] Guaifenesin 600 mg ER [Mucinex 600MG ER Tabs] 1,200 mg PO DAILY PRN PRN 03/17/22 [History Confirmed 06/24/22] Pravastatin Sodium 20 mg PO DAILY 03/17/22 [History Confirmed 06/24/22] Rizatriptan Benzoate [Rizatriptan] 10 mg PO DAILY PRN PRN 03/17/22 [History Confirmed 06/24/22] Sitagliptin Phosphate 50 MG [Januvia 50 MG] 100 mg PO DAILY 03/17/22 [History Confirmed 06/24/22] Duloxetine HCl 30 mg [Cymbalta 30 MG Capsule] 30 mg PO DAILY 03/24/22 [History Confirmed 06/24/22] Furosemide 20 mg [Lasix 20 mg] 20 mg PO DAILY 03/24/22 [History Confirmed 06/24/22] Semaglutide [Ozempic] 0.5 mg PO WEEKLY 03/24/22 [History Confirmed 06/24/22] Allergies/Adverse Reactions: Allergies Allergy/AdvReac Type Severity Reaction Status Date / Time Penicillins Allergy Verified 06/24/22 09:08 codeine AdvReac Verified 06/24/22 09:08 - Past Medical History Past Medical History: Yes Neurological History: Migraines ENT History: No Pertinent History Cardiac History: No Pertinent History Respiratory History: No Pertinent History Endocrine Medical History: Diabetes Type II Musculoskelatal History: Arthritis GI Medical History: No Pertinent History History: No Pertinent History Pyscho-Social History: No Pertinent History Reproductive Disorders: No Pertinent History Comment: Multiple L MT fractures. heart murmur - Past Surgical History Past Surgical History: Yes Neuro Surgical History: No Pertinent History Cardiac History: No Pertinent History Respiratory Surgery: No Pertinent History GI Surgical History: No Pertinent History Genitourinary Surgical Hx: No Pertinent History Musculskeletal Surgical Hx: No Pertinent History Female Surgical History: Section, Tubal Ligation Other Surgical History: sinus , 3 left ankle surgery, right big toe - Social History Smoking Status: Never smoker Exposure to second hand smoke: No Alcohol: Occasionally Drug Use: none Significant Family History: diabetes, hypertension - Physical Exam General Appearance: no apparent distress Neurologic Exam: alert, oriented x 3 Eye Exam: eyes nml inspection Respiratory Exam: normal breath sounds, No accessory muscle use Cardiovascular Exam: regular rate/rhythm, edema (Other than around her toe), No murmur Gastrointestinal/Abdomen Exam: soft, No tenderness, No distention Skin Exam: other (Left first toe with edema and erythema over the digit extending onto the dorsal surface of the foot, with skin breakdown over the plantar surface of the toe, with no active drainage, but a sinus tract.) Results - Labs Lab/Micro Results: Lab Results-Last 24 Hours / Range/Units 16:35 POC Glucometer 213 H (74 to 106) mg/dL - Radiology Impressions Radiology Exams & Impressions: Left foot MRI first through fourth toe ferromagnetic artifact from fusion hardware limits the exam and evaluation for osteomyelitis. Tiny first metatarsal bone cyst, old second, third, and fifth metatarsal fractures. Assessment/Plan (1) Cellulitis of great toe, left Current Visit: No Status: Acute Assessment & Plan: 57-year-old with a history of diabetes and hypertension, here with left first toe cellulitis with likely osteomyelitis. ## Likely left first toe osteomyelitis unable to confirm an MRI, but clinically apparent, with possible sinus tract. Failing treatment with outpatient Levaquin. Discussed with Dr. Dilan Almaraz, and want to admit for IV antibiotics and possible surgical evaluation. Dr. Almaraz plans to add IV antibiotics PRN Tylenol for now, but can add tramadol and/or [place] if pain is uncontrolled Surgical plans per podiatry ## Type 2 diabetes moderately uncontrolled, with hemoglobin A1c 7.7. Continue home Januvia and Ozempic Cover with moderate dose sliding scale insulin ## Depression Continue home Cymbalta, Wellbutrin CODE STATUS: Full code Prophylaxis: Lovenox 40 Entirety of encounter took place via telemedicine. Patient consented to telemedicine. Code(s): L03.032 - CELLULITIS OF LEFT TOE Telemedicine Encounter - Telemedicine Encounter Telemedicine Encounter: The entirety of this encounter was performed via Telemedicine"
[2022-10-30 17:21] LABS: Erythrocyte Sedimentation Rate 34 mm/hr (0-20)
[2022-10-30 17:23] LABS: Absolute Neutrophil Ct (ANC) 6.01 x10^3/uL (1.4-6.9); BASOPHIL % 0.5 % (0.0-0.4); Basophil (Absolute #) 0.05 x10^3/uL (0-0.4); Eosinophil % 2.3 % (0.00-5.0); Eosinophil (Absolute #) 0.21 x10^3/uL (0-0.5); Hematocrit 35.4 % (35-47); Hemoglobin 11.4 g/dL (12.0-16.0); IMMATURE GRAN # 0.03 x10^3u/L (0.00-0.03); IMMATURE GRAN % 0.3 % (0.00-0.4); Lymphocyte (Absolute #) 2.28 x10^3/uL (1.0-4.6); Lymphocytes % 24.7 % (24.0-44.0); Mean Cell Volume 93.9 fL (78-100); Mean Corpuscular Hemoglobin 30.2 pg (26-32); Mean Corpuscular Hgb Concent. 32.2 g/dL (32-36); Mean Platelet Volume 10.3 fL (7.5-11.0); Monocyte (Absolute #) 0.66 x10^3/uL (0.0-1.3); Monocytes % 7.1 % (0.0-12.0); Neutrophil % 65.1 % (36.0-66.0); Platelet Count 393 x10^3/uL (150-450); Red Blood Count 3.77 x10^6/uL (4.1-5.4); White Blood Count 9.2 x10^3/uL (4.0-10.5)
[2022-10-30 17:31] LABS: ALBUMIN 4.1 g/dL (3.5-5.0); ANION GAP 14.2 MEQ/L (5-15); BILIRUBIN,TOTAL 0.4 mg/dL (0.2-1.3); Calcium 9.8 mg/dL (8.4-10.2); Creatinine 1 2.04 mg/dL (0.52-1.04); EST GLOMERULAR FILTRATION RATE 26.9 ML/MIN; Potassium 4.6 mmol/L (3.5-5.1); Total Protein 7.8 g/dL (6.3-8.2)
[2022-10-30 17:33] LABS: INR 0.96 (0.8-3.0); PROTIME 10.5 SECONDS (9.4-12.5); PTT 26.8 SECONDS (25.1-36.5)
[2022-10-30] MEDS: Cipro 500 MG PO SCH (18:00)
[2022-10-30] MEDS ORDERED: ZYVOX PO SCH (22:00)
[2022-10-31 01:53] LABS: Absolute Neutrophil Ct (ANC) 4.34 x10^3/uL (1.4-6.9); BASOPHIL % 0.7 % (0.0-0.4); Basophil (Absolute #) 0.06 x10^3/uL (0-0.4); Eosinophil % 3.1 % (0.00-5.0); Eosinophil (Absolute #) 0.27 x10^3/uL (0-0.5); Hematocrit 33.6 % (35-47); Hemoglobin 10.6 g/dL (12.0-16.0); IMMATURE GRAN # 0.02 x10^3u/L (0.00-0.03); IMMATURE GRAN % 0.2 % (0.00-0.4); Lymphocyte (Absolute #) 3.28 x10^3/uL (1.0-4.6); Lymphocytes % 37.7 % (24.0-44.0); Mean Cell Volume 94.9 fL (78-100); Mean Corpuscular Hemoglobin 29.9 pg (26-32); Mean Corpuscular Hgb Concent. 31.5 g/dL (32-36); Mean Platelet Volume 10.3 fL (7.5-11.0); Monocyte (Absolute #) 0.74 x10^3/uL (0.0-1.3); Monocytes % 8.5 % (0.0-12.0); Neutrophil % 49.8 % (36.0-66.0); Platelet Count 387 x10^3/uL (150-450); Red Blood Count 3.54 x10^6/uL (4.1-5.4); Red Cell Distribution Width 11.9 % (11.5-14.0); White Blood Count 8.7 x10^3/uL (4.0-10.5)
[2022-10-31 04:39] LABS: ALBUMIN 3.9 g/dL (3.5-5.0); BILIRUBIN,TOTAL 0.5 mg/dL (0.2-1.3); Total Protein 7.6 g/dL (6.3-8.2)
[2022-10-31 04:47] LABS: ISTAT CREA 2.2 mg/dL (0.6-1.3)
[2022-10-31] MEDS ORDERED: Mucinex 600MG ER Tabs PO PRN (07:06)
[2022-10-31] MEDS ORDERED: Sodium Chloride 0.9% 1000 ML 1,000 ML IV SCH (08:00)
[2022-10-31] MEDS: Tricor 145 MG PO SCH (09:11)
[2022-10-31] MEDS: ENOXAPARIN SODIUM SQ SCH (09:11)
[2022-10-31] MEDS: Januvia 50 MG PO SCH (09:11)
[2022-10-31] MEDS ORDERED: Xylocaine 1% Vial 30 ML PF IJ ONE (09:16)
[2022-10-31] MEDS ORDERED: Marcaine Mpf 0.5% Vial 30 Ml ONE (09:16)
[2022-10-31] MEDS ORDERED: LASIX 20 MG PO SCH (10:00)
[2022-10-31] MEDS ORDERED: NON-FORMULARY ITEM (Lisinopril [Lisinopril] 40 MG Tablet) PO SCH (10:00)
[2022-10-31] MEDS ORDERED: NON-FORMULARY ITEM (Pravastatin Sodium [Pravastatin Sodium] 20 MG Tablet) PO SCH (10:00)
[2022-10-31] MEDS ORDERED: Zestril 20 MG PO SCH (10:00)
[2022-10-31] MEDS ORDERED: ZOCOR 20MG PO SCH (10:00)
[2022-10-31] MEDS ORDERED: ENOXAPARIN SODIUM SQ SCH (10:00)
[2022-10-31] MEDS ORDERED: Zyvox 600 MG IV PREMIX*** 300 ML IV SCH (10:00)
[2022-10-31] MEDS ORDERED: Klor Con PO SCH (10:00)
[2022-10-31] MEDS ORDERED: Lyrica 50MG PO SCH (10:00)
[2022-10-31] MEDS: Lyrica 50MG PO SCH (11:13)
[2022-10-31] MEDS: Wellbutrin XL 150 MG PO SCH ×2 (11:18→21:18)
[2022-10-31] MEDS ORDERED: SUBLIMAZE 100 MCG/2 ML ONE (13:27)
[2022-10-31] MEDS ORDERED: Zemuron 100 MG/10 ML ONE (13:27)
[2022-10-31] MEDS ORDERED: BRIDION 200MG/2ML IV ONE (13:27)
[2022-10-31] MEDS ORDERED: Xylocaine-Mpf 2% 5 Ml Vial ONE (13:27)
[2022-10-31] MEDS ORDERED: Decadron 4 MG INJ ONE (13:27)
[2022-10-31] MEDS ORDERED: Zofran 4 MG/2 ML VIAL ONE (13:27)
[2022-10-31] MEDS ORDERED: TORAdol 30 mg Injection ONE (13:27)
[2022-10-31] MEDS ORDERED: DIPRIVAN 200 MG/20 ML IV ONE (13:27)
[2022-10-31] MEDS ORDERED: Versed 2 MG/2 ML Injection ONE (13:28)
[2022-10-31] MEDS ORDERED: Lactated Ringers 1,000 ML IV ONE (13:37)
[2022-10-31] MEDS ORDERED: DAPTOmycin 700 MG in Sodium Chloride Flush 30 ML*** 14 ML IV SCH (14:00)
[2022-10-31] MEDS ORDERED: PHENYLEPHRINE HCL ONE (14:07)
--- NOTE | 2022-10-31 15:58 | PCM.NOTE ---
Date and Time: 10/31/22 1552 Subjective Assessment: No acute events overnight. Currently awaiting surgery later today. She is complaining of hunger as she has been n.p.o. since midnight. Feeling symptoms of foot pain. Denies nausea, muscle weakness, or paresthesias. Objective Exam General Appearance: no apparent distress Neurologic Exam: alert, oriented x 3 Respiratory Exam: normal breath sounds, lungs clear, No accessory muscle use Cardiovascular Exam: regular rate/rhythm, No murmur, No edema OBJECTIVE DATA Vital Signs: Vital Signs - 24 hr Temp Pulse Resp BP BP Pulse Ox 10/31/22 15:32 97.9 F 65 16 113/65 97 10/31/22 12:00 97.8 F 69 16 95/45 95 10/31/22 07:22 97.9 F 81 16 98/53 96 10/31/22 06:58 97.5 F 70 16 100/52 99/54 97 10/31/22 04:00 97.5 F 70 16 100/52 97 10/30/22 23:23 98.4 F 75 16 101/55 98 10/30/22 19:12 97.7 F 66 16 107/56 96 10/30/22 16:30 99/54 10/30/22 16:06 97.7 F 76 17 99/54 99 Pain Assessment - Last Documented Pain Intensity 3 Intake and Output: Intake & Output 10/29/22 10/30/22 10/31/22 11/01/22 11:59 11:59 11:59 11:59 Intake Total 600 0 Balance 600 0 Weight 116.2 kg Lab Results: Lab Results-Last 24 Hours 10/30/22 10/30/22 10/30/22 Range/Units 16:35 17:17 17:17 WBC (4.0-10.5) x10^3/uL RBC (4.1-5.4) x10^6/uL Hgb (12.0-16.0) g/dL Hct (35-47) % MCV (78-100) fL MCH (26-32) pg MCHC (32-36) g/dL RDW (11.5-14.0) % Plt Count (150-450) x10^3/uL MPV (7.5-11.0) fL Gran % (36.0-66.0) % Immature Gran % (Auto) (0.00-0.4) % Nucleat RBC Rel Count (0.00-0.1) % Eos # (Auto) (0-0.5) x10^3/uL Immature Gran # (Auto) (0.00-0.03) x10^3u/L Absolute Lymphs (auto) (1.0-4.6) x10^3/uL Absolute Monos (auto) (0.0-1.3) x10^3/uL Absolute Nucleated RBC (0.00-0.01) x10^3u/L Lymphocytes % (24.0-44.0) % Monocytes % (0.0-12.0) % Eosinophils % (0.00-5.0) % Basophils % (0.0-0.4) % Absolute Granulocytes (1.4-6.9) x10^3/uL Basophils # (0-0.4) x10^3/uL ESR (0-20) mm/hr PT 10.5 (9.4-12.5) SECONDS INR 0.96 (0.8-3.0) APTT 26.8 (25.1-36.5) SECONDS Sodium 138 (137-145) mmol/L Sodium Direct (138-146) mmol/L Potassium 4.6 (3.5-5.1) mmol/L Chloride 100 (98-107) mmol/L Carbon Dioxide 29 (22-30) mmol/L Anion Gap 14.2 (5-15) MEQ/L BUN 42 H (7-17) mg/dL Venous BUN (8-26) mg/dL Creatinine 2.04 H (0.52-1.04) mg/dL Estimated GFR 26.9 ML/MIN Glucose 181 H (74-106) mg/dL POC Glucometer 213 H (74 to 106) mg/dL Lactic Acid (0.4-2.0) Calcium 9.8 (8.4-10.2) mg/dL Ionized Calcium (1.12-1.32) mmol/L Total Bilirubin 0.40 (0.2-1.3) mg/dL AST 21 (14-36) U/L ALT 18 (0-35) U/L Alkaline Phosphatase 52 (38-126) U/L Serum Total Protein 7.8 (6.3-8.2) g/dL Albumin 4.1 (3.5-5.0) g/dL 10/30/22 10/30/22 10/30/22 Range/Units 17:17 17:18 21:49 WBC 9.2 (4.0-10.5) x10^3/uL RBC 3.77 L (4.1-5.4) x10^6/uL Hgb 11.4 L (12.0-16.0) g/dL Hct 35.4 (35-47) % MCV 93.9 (78-100) fL MCH 30.2 (26-32) pg MCHC 32.2 (32-36) g/dL RDW 12.0 (11.5-14.0) % Plt Count 393 (150-450) x10^3/uL MPV 10.3 (7.5-11.0) fL Gran % 65.1 (36.0-66.0) % Immature Gran % (Auto) 0.3 (0.00-0.4) % Nucleat RBC Rel Count 0.0 (0.00-0.1) % Eos # (Auto) 0.21 (0-0.5) x10^3/uL Immature Gran # (Auto) 0.03 (0.00-0.03) x10^3u/L Absolute Lymphs (auto) 2.28 (1.0-4.6) x10^3/uL Absolute Monos (auto) 0.66 (0.0-1.3) x10^3/uL Absolute Nucleated RBC 0.00 (0.00-0.01) x10^3u/L Lymphocytes % 24.7 (24.0-44.0) % Monocytes % 7.1 (0.0-12.0) % Eosinophils % 2.3 (0.00-5.0) % Basophils % 0.5 (0.0-0.4) % Absolute Granulocytes 6.01 (1.4-6.9) x10^3/uL Basophils # 0.05 (0-0.4) x10^3/uL ESR 34 H (0-20) mm/hr PT (9.4-12.5) SECONDS INR (0.8-3.0) APTT (25.1-36.5) SECONDS Sodium (137-145) mmol/L Sodium Direct (138-146) mmol/L Potassium (3.5-5.1) mmol/L Chloride (98-107) mmol/L Carbon Dioxide (22-30) mmol/L Anion Gap (5-15) MEQ/L BUN (7-17) mg/dL Venous BUN (8-26) mg/dL Creatinine (0.52-1.04) mg/dL Estimated GFR ML/MIN Glucose (74-106) mg/dL POC Glucometer 140 H (74 to 106) mg/dL Lactic Acid 1.0 (0.4-2.0) Calcium (8.4-10.2) mg/dL Ionized Calcium (1.12-1.32) mmol/L Total Bilirubin (0.2-1.3) mg/dL AST (14-36) U/L ALT (0-35) U/L Alkaline Phosphatase (38-126) U/L Serum Total Protein (6.3-8.2) g/dL Albumin (3.5-5.0) g/dL 10/31/22 10/31/22 10/31/22 Range/Units 01:30 01:30 07:31 WBC 8.7 (4.0-10.5) x10^3/uL RBC 3.54 L (4.1-5.4) x10^6/uL Hgb 10.6 L (12.0-16.0) g/dL Hct 33.6 L (35-47) % MCV 94.9 (78-100) fL MCH 29.9 (26-32) pg MCHC 31.5 L (32-36) g/dL RDW 11.9 (11.5-14.0) % Plt Count 387 (150-450) x10^3/uL MPV 10.3 (7.5-11.0) fL Gran % 49.8 (36.0-66.0) % Immature Gran % (Auto) 0.2 (0.00-0.4) % Nucleat RBC Rel Count 0.0 (0.00-0.1) % Eos # (Auto) 0.27 (0-0.5) x10^3/uL Immature Gran # (Auto) 0.02 (0.00-0.03) x10^3u/L Absolute Lymphs (auto) 3.28 (1.0-4.6) x10^3/uL Absolute Monos (auto) 0.74 (0.0-1.3) x10^3/uL Absolute Nucleated RBC 0.00 (0.00-0.01) x10^3u/L Lymphocytes % 37.7 (24.0-44.0) % Monocytes % 8.5 (0.0-12.0) % Eosinophils % 3.1 (0.00-5.0) % Basophils % 0.7 (0.0-0.4) % Absolute Granulocytes 4.34 (1.4-6.9) x10^3/uL Basophils # 0.06 (0-0.4) x10^3/uL ESR (0-20) mm/hr PT (9.4-12.5) SECONDS INR (0.8-3.0) APTT (25.1-36.5) SECONDS Sodium (137-145) mmol/L Sodium Direct 138 (138-146) mmol/L Potassium 5.0 H (3.5-5.1) mmol/L Chloride 104 (98-107) mmol/L Carbon Dioxide 30 H (22-30) mmol/L Anion Gap (5-15) MEQ/L BUN (7-17) mg/dL Venous BUN 45 H (8-26) mg/dL Creatinine 2.2 H (0.52-1.04) mg/dL Estimated GFR ML/MIN Glucose 136 H (74-106) mg/dL POC Glucometer 122 H (74 to 106) mg/dL Lactic Acid (0.4-2.0) Calcium (8.4-10.2) mg/dL Ionized Calcium 1.00 L (1.12-1.32) mmol/L Total Bilirubin 0.50 (0.2-1.3) mg/dL AST 47 H (14-36) U/L ALT 17 (0-35) U/L Alkaline Phosphatase 52 (38-126) U/L Serum Total Protein 7.6 (6.3-8.2) g/dL Albumin 3.9 (3.5-5.0) g/dL 10/31/ Range/Units 11:56 WBC (4.0-10.5) x10^3/uL RBC (4.1-5.4) x10^6/uL Hgb (12.0-16.0) g/dL Hct (35-47) % MCV (78-100) fL MCH (26-32) pg MCHC (32-36) g/dL RDW (11.5-14.0) % Plt Count (150-450) x10^3/uL MPV (7.5-11.0) fL Gran % (36.0-66.0) % Immature Gran % (Auto) (0.00-0.4) % Nucleat RBC Rel Count (0.00-0.1) % Eos # (Auto) (0-0.5) x10^3/uL Immature Gran # (Auto) (0.00-0.03) x10^3u/L Absolute Lymphs (auto) (1.0-4.6) x10^3/uL Absolute Monos (auto) (0.0-1.3) x10^3/uL Absolute Nucleated RBC (0.00-0.01) x10^3u/L Lymphocytes % (24.0-44.0) % Monocytes % (0.0-12.0) % Eosinophils % (0.00-5.0) % Basophils % (0.0-0.4) % Absolute Granulocytes (1.4-6.9) x10^3/uL Basophils # (0-0.4) x10^3/uL ESR (0-20) mm/hr PT (9.4-12.5) SECONDS INR (0.8-3.0) APTT (25.1-36.5) SECONDS Sodium (137-145) mmol/L Sodium Direct (138-146) mmol/L Potassium (3.5-5.1) mmol/L Chloride (98-107) mmol/L Carbon Dioxide (22-30) mmol/L Anion Gap (5-15) MEQ/L BUN (7-17) mg/dL Venous BUN (8-26) mg/dL Creatinine (0.52-1.04) mg/dL Estimated GFR ML/MIN Glucose (74-106) mg/dL POC Glucometer 93 (74 to 106) mg/dL Lactic Acid (0.4-2.0) Calcium (8.4-10.2) mg/dL Ionized Calcium (1.12-1.32) mmol/L Total Bilirubin (0.2-1.3) mg/dL AST (14-36) U/L ALT (0-35) U/L Alkaline Phosphatase (38-126) U/L Serum Total Protein (6.3-8.2) g/dL Albumin (3.5-5.0) g/dL Radiology Exams: Radiology Procedures Category Date Time Status FLUOROSCOPY UP TO 1 HR Routine Exams 10/31/22 06:46 Ordered FOOT (MINIMUM 3 VIEWS) Routine Exams 10/31/22 06:46 Ordered Multi-Disciplinary Progress Notes: Multi-Disciplinary Progress Notes 10/31/22 13:52 Pharmacy Note by Leonardo Okeefe replacing Zyvox. Hold cholesterol meds while on Cubicin. Patient on borderline of q24h vs. q48h dosing based on renal function. Estimated crcl is 37ml/min. Will go with 700mg iv daily. Recommend checking creat every 3-4 days. Check cpk level weekly. Initialized on 10/31/22 13:52 - END OF NOTE 10/31/22 07:21 Pharmacy Note by Leonardo Okeefe Zyvox has a category X interaction with Cymbalta and Wellbutrin. Please review if these need changed. Initialized on 10/31/22 07:21 - END OF NOTE Assessment/Plan (1) Cellulitis of great toe, left Current Visit: No Status: Acute Assessment & Plan: 57-year-old with a history of diabetes and hypertension, here with left first toe cellulitis with likely osteomyelitis. ## Likely left first toe osteomyelitis unable to confirm an MRI, but clinically apparent, with possible sinus tract. Failed outpatient treatment with Levaquin. To OR today with Dr. Almaraz Continue Cipro 500 mg daily Change Zyvox to daptomycin because of interactions with SSRIs PRN Tylenol for now, but can add tramadol and/or [place] if pain is uncontrolled ## Type 2 diabetes moderately uncontrolled, with hemoglobin A1c 7.7. Blood glucose levels been controlled here. Continue home Januvia and Ozempic Cover with moderate dose sliding scale insulin ## Depression Continue home Cymbalta, Wellbutrin CODE STATUS: Full code Prophylaxis: Lovenox 40 Dispo: Home after second surgery for closure of wound. Entirety of encounter took place via telemedicine. Patient consented to telemedicine. Code(s): L03.032 - CELLULITIS OF LEFT TOE Telemedicine Encounter - Telemedicine Encounter Telemedicine Encounter: The entirety of this encounter was performed via Telemedicine"
[2022-10-31] MEDS ORDERED: MOTRIN 600 MG PO PRN (16:31)
[2022-10-31] MEDS ORDERED: RIZATRIPTAN BENZOATE 10 MG PO PRN (16:33)
--- NOTE | 2022-10-31 16:35 | XRAY ---
Indication: Left great toe amputation. Intraoperative fluoroscopy provided for 2 seconds. Single digital spot image submitted for interpretation demonstrates great toe amputation. Correlate with intraoperative findings/report. Incidental 2nd-4th toe arthrodesis with intact hardware and old 2nd/3rd/5th metatarsal fractures.
[2022-10-31] MEDS ORDERED: MEDICATION INTERVENTION MC SCH ×2 (16:45)
[2022-10-31] MEDS ORDERED: NON-FORMULARY ITEM (Semaglutide [Ozempic] 0.25 MG/0.2 ML Pen.Injctr) PO SCH (16:45)
[2022-10-31] MEDS: HUMALOG SQ PRN ×2 (17:04→21:23)
[2022-10-31] MEDS: Cipro 500 MG PO SCH (17:04)
[2022-10-31] MEDS: Ecotrin 325 MG PO SCH (17:04)
[2022-10-31] MEDS: Cymbalta 30 MG Capsule PO SCH ×2 (21:16→21:19)
[2022-10-31] MEDS ORDERED: NON-FORMULARY ITEM (Duloxetine Hcl [Cymbalta] 60 MG Capsule.Dr) PO SCH (22:00)
[2022-11-01] MEDS: NORCO 5/325 MG PO PRN ×2 (02:55→07:54)
[2022-11-01 05:21] LABS: Absolute Neutrophil Ct (ANC) 6.92 x10^3/uL (1.4-6.9); BASOPHIL % 0.2 % (0.0-0.4); Basophil (Absolute #) 0.02 x10^3/uL (0-0.4); Eosinophil % 0.1 % (0.00-5.0); Eosinophil (Absolute #) 0.01 x10^3/uL (0-0.5); Hematocrit 32.4 % (35-47); Hemoglobin 10.3 g/dL (12.0-16.0); IMMATURE GRAN # 0.02 x10^3u/L (0.00-0.03); IMMATURE GRAN % 0.2 % (0.00-0.4); Lymphocyte (Absolute #) 1.62 x10^3/uL (1.0-4.6); Lymphocytes % 17.7 % (24.0-44.0); Mean Cell Volume 93.1 fL (78-100); Mean Corpuscular Hemoglobin 29.6 pg (26-32); Mean Corpuscular Hgb Concent. 31.8 g/dL (32-36); Mean Platelet Volume 10.7 fL (7.5-11.0); Monocyte (Absolute #) 0.58 x10^3/uL (0.0-1.3); Monocytes % 6.3 % (0.0-12.0); Neutrophil % 75.5 % (36.0-66.0); Platelet Count 402 x10^3/uL (150-450); Red Blood Count 3.48 x10^6/uL (4.1-5.4); Red Cell Distribution Width 11.9 % (11.5-14.0); White Blood Count 9.2 x10^3/uL (4.0-10.5)
[2022-11-01 05:56] LABS: ALBUMIN 3.7 g/dL (3.5-5.0); ANION GAP 17.3 MEQ/L (5-15); BILIRUBIN,TOTAL 0.3 mg/dL (0.2-1.3); Calcium 9.2 mg/dL (8.4-10.2); Creatinine 1 2.18 mg/dL (0.52-1.04); EST GLOMERULAR FILTRATION RATE 24.9 ML/MIN; Total Protein 7.1 g/dL (6.3-8.2)
[2022-11-01] MEDS: HUMALOG SQ PRN ×3 (07:28→16:47)
[2022-11-01] MEDS: ENOXAPARIN SODIUM SQ SCH (08:30)
[2022-11-01] MEDS: Tricor 145 MG PO SCH (08:31)
[2022-11-01] MEDS: Januvia 50 MG PO SCH (08:31)
[2022-11-01] MEDS: Ecotrin 325 MG PO SCH (08:31)
[2022-11-01] MEDS: Wellbutrin XL 150 MG PO SCH ×2 (08:32→22:08)
[2022-11-01] MEDS: Lyrica 50MG PO SCH (08:32)
[2022-11-01] MEDS: DAPTOmycin 700 MG in Sodium Chloride Flush 30 ML*** 14 ML IV SCH (08:33)
--- NOTE | 2022-11-01 08:49 | OP ---
SURGERY DATE/TIME: 10/31/2022 1313 PREOPERATIVE DIAGNOSES: 1) Diabetic left foot infection. 2) Peripheral neuropathy. 3) Volkmann's contracture foot. 4) Controlled diabetes. 5) Osteomyelitis. POSTOPERATIVE DIAGNOSES: 1) Diabetic left foot infection. 2) Peripheral neuropathy. 3) Volkmann's contracture foot. 4) Controlled diabetes. 5) Osteomyelitis. PROCEDURE: Open amputation left hallux. SURGEON: Dilan Almaraz DPM. POST OFFICE CLERK: None. ANESTHESIA: Monitored anesthesia care plus intraoperative block. See injectables for details. HEMOSTASIS: Pressure dressing. ESTIMATED BLOOD LOSS: Less than 10 cc. MATERIALS: 3-0 Nylon, 0.25 inch Iodoform packing. INJECTABLES: 20 cc of a 1:1 mixture of 1% lidocaine plain and 0.5% bupivacaine plain injected in Patiño block-type fashion. INDICATION FOR SURGERY: Rika is a very well-known patient to my service for concerns of an ulceration to the distal tip of the left hallux. The patient stated that she did have a procedure where she had a fusion of her rear foot in the past and since then she developed contractures of all of her toes. This is suspected to be compartment syndrome of the foot resulting in this Volkmann's contracture. The patient did have surgical intervention after healing this wound initially in order to correct the position of the toe as well as the hammer toe. The patient subsequently went on to have no complications for approximately four to five months. However shortly thereafter, she did notice some return of the callous to the distal tip of the toe. As time went on the patient ignored this issue for approximately a month and a half. She presented to my office approximately one week ago where she indicated that at some point in the recent history there was a malodor. MRI was obtained demonstrating no definitive signs of osteomyelitis. However the patient was placed on outpatient oral antibiotics and returned to the next week with streaking up her leg and purulence coming out of the distal tip of the wound. In the setting of the hardware being present, the decision was made to proceed with amputation of the left hallux and the patient placed in inpatient setting to proceed with eradicating the infection before it spreads to the rest of the foot versus the leg. At this time, the patient understands all risks, complications and benefits of surgical intervention including but not limited to infection, hematoma, seroma, possibility of delayed wound healing, nonwound healing, possibility of further need for surgical intervention at a later date. As intended this is to be a staged procedure. No guarantees provided as to the outcome. Plenty of time was allowed for the patient to ask questions which were answered to her apparent satisfaction. It is with that we decided to proceed. DESCRIPTION OF PROCEDURE AND FINDINGS: The patient is brought into the OR and placed and placed on the OR table in the supine position. At this time monitored anesthesia care was administered until the patient was sedated. The left lower extremity was then prepped and draped in the typical sterile fashion and lowered onto the surgical field. At this time a block was performed at the left forefoot in a Patiño block-type consisting of 20 cc of a 1:1 mixture of 1% lidocaine plain and 0.5% bupivacaine plain. Following this, a skin marker was utilized to draw out a medial racket incision showing as much soft tissue over the dorsal aspect and plantar aspect of the great toe. At this time a 10 blade was utilized to make a full thickness incision along surgical planning lines of the medial racket incision. The full thickness flaps were elevated utilizing a 15 blade and disarticulating the metatarsophalangeal joint. At this time the toe was handed off the field. Soft tissue cultures as well as bone cultures were taken and the toe itself was sent for pathology. Following this copious amounts of sterile saline were utilized to flush the surgical site. 1 liter of Bactisure was then utilized to flush the surgical site and 3 liters of sterile saline were then utilized to flush the site utilizing Pulsavac. At this time 3-0 nylon was utilized to coapt to coapt the edges in a trauma suture-type fashion at multiple locations leaving the distal tip of the site open. Following this, iodine soaked 0.25 inch Iodoform packing was then packed into the distal aspect of the toe. A dressing consisting of Betadine, Adaptic, 4x4, Kerlix, ABD and DARA was applied to the patient's left lower extremity. The patient was then reversed from anesthesia and returned to the postoperative anesthesia care unit with vital signs stable and vascular status intact. The patient handled the anesthesia as well as the procedure without significant complication. Postoperative orders as indicated in the patient's discharge chart.
--- NOTE | 2022-11-01 11:05 | XRAY ---
2 seconds of fluoroscopy was used in surgery for a left great toe amputation.
[2022-11-01 12:12] LABS: CREATININE,URINE RANDOM 54.3 MG/DL
--- NOTE | 2022-11-01 17:22 | PCM.NOTE ---
Date and Time: 11/01/221713 Subjective Assessment: No acute events overnight. However, she had difficulty sleeping throughout the night. Pain is well controlled today. Objective Exam General Appearance: no apparent distress Neurologic Exam: alert, oriented x 3, normal mood/affect Eye Exam: eyes nml inspection Respiratory Exam: normal breath sounds, lungs clear, No respiratory distress Cardiovascular Exam: regular rate/rhythm, normal heart sounds, No murmur, No edema Gastrointestinal/Abdomen Exam: soft, No tenderness, No distention OBJECTIVE DATA Vital Signs: Vital Signs - 24 hr Temp Pulse Resp BP BP Pulse Ox 11/01/22 16:00 95.9 F 71 18 92/57 100 11/01/22 11:48 97.1 F 82 17 101/59 96 11/01/22 07:13 96.8 F 62 18 104/60 97 11/01/22 03:50 98.1 F 79 20 118/64 95 10/31/22 23:38 98.3 F 69 18 127/71 98 10/31/22 20:00 98.0 F 68 16 134/60 96 Pain Assessment - Last Documented Pain Intensity 0 Pain Scale Used 0-10 Pain Scale Intake and Output: Intake & Output 10/30/22 10/31/22 11/01/22 11/02/22 11:59 11:59 11:59 11:59 Intake Total 600 720 480 Balance 600 720 480 Weight 116.2 kg 116.2 kg Lab Results: Lab Results-Last 24 Hours 10/30/22 10/31/22 10/31/22 Range/Units 17:17 11:42 20:41 WBC (4.0-10.5) x10^3/uL RBC (4.1-5.4) x10^6/uL Hgb (12.0-16.0) g/dL Hct (35-47) % MCV (78-100) fL MCH (26-32) pg MCHC (32-36) g/dL RDW (11.5-14.0) % Plt Count (150-450) x10^3/uL MPV (7.5-11.0) fL Gran % (36.0-66.0) % Immature Gran % (Auto) (0.00-0.4) % Nucleat RBC Rel Count (0.00-0.1) % Eos # (Auto) (0-0.5) x10^3/uL Immature Gran # (Auto) (0.00-0.03) x10^3u/L Absolute Lymphs (auto) (1.0-4.6) x10^3/uL Absolute Monos (auto) (0.0-1.3) x10^3/uL Absolute Nucleated RBC (0.00-0.01) x10^3u/L Lymphocytes % (24.0-44.0) % Monocytes % (0.0-12.0) % Eosinophils % (0.00-5.0) % Basophils % (0.0-0.4) % Absolute Granulocytes (1.4-6.9) x10^3/uL Basophils # (0-0.4) x10^3/uL Sodium (137-145) mmol/L Potassium (3.5-5.1) mmol/L Chloride (98-107) mmol/L Carbon Dioxide (22-30) mmol/L Anion Gap (5-15) MEQ/L BUN (7-17) mg/dL Creatinine (0.52-1.04) mg/dL Estimated GFR ML/MIN Glucose (74-106) mg/dL POC Glucometer 296 H (74 to 106) mg/dL Calcium (8.4-10.2) mg/dL Total Bilirubin (0.2-1.3) mg/dL AST (14-36) U/L ALT (0-35) U/L Alkaline Phosphatase (38-126) U/L Creatine Kinase (30-135) U/L C-Reactive Prot, Quant 58 H (0-10) mg/L Serum Total Protein (6.3-8.2) g/dL Albumin (3.5-5.0) g/dL Ur Random Creatinine 54.3 MG/DL Urine Sodium 19 L (30-90) mmol/L 11/01/22 11/01/22 11/01/22 Range/Units 04:57 04:57 04:57 WBC 9.2 (4.0-10.5) x10^3/uL RBC 3.48 L (4.1-5.4) x10^6/uL Hgb 10.3 L (12.0-16.0) g/dL Hct 32.4 L (35-47) % MCV 93.1 (78-100) fL MCH 29.6 (26-32) pg MCHC 31.8 L (32-36) g/dL RDW 11.9 (11.5-14.0) % Plt Count 402 (150-450) x10^3/uL MPV 10.7 (7.5-11.0) fL Gran % 75.5 H (36.0-66.0) % Immature Gran % (Auto) 0.2 (0.00-0.4) % Nucleat RBC Rel Count 0.0 (0.00-0.1) % Eos # (Auto) 0.01 (0-0.5) x10^3/uL Immature Gran # (Auto) 0.02 (0.00-0.03) x10^3u/L Absolute Lymphs (auto) 1.62 (1.0-4.6) x10^3/uL Absolute Monos (auto) 0.58 (0.0-1.3) x10^3/uL Absolute Nucleated RBC 0.00 (0.00-0.01) x10^3u/L Lymphocytes % 17.7 L (24.0-44.0) % Monocytes % 6.3 (0.0-12.0) % Eosinophils % 0.1 (0.00-5.0) % Basophils % 0.2 (0.0-0.4) % Absolute Granulocytes 6.92 H (1.4-6.9) x10^3/uL Basophils # 0.02 (0-0.4) x10^3/uL Sodium 136 L (137-145) mmol/L Potassium 5.0 (3.5-5.1) mmol/L Chloride 99 (98-107) mmol/L Carbon Dioxide 25 (22-30) mmol/L Anion Gap 17.3 H (5-15) MEQ/L BUN 52 H (7-17) mg/dL Creatinine 2.18 H (0.52-1.04) mg/dL Estimated GFR 24.9 ML/MIN Glucose 213 H (74-106) mg/dL POC Glucometer (74 to 106) mg/dL Calcium 9.2 (8.4-10.2) mg/dL Total Bilirubin 0.30 (0.2-1.3) mg/dL AST 19 (14-36) U/L ALT 18 (0-35) U/L Alkaline Phosphatase 48 (38-126) U/L Creatine Kinase 29 L (30-135) U/L C-Reactive Prot, Quant (0-10) mg/L Serum Total Protein 7.1 (6.3-8.2) g/dL Albumin 3.7 (3.5-5.0) g/dL Ur Random Creatinine MG/DL Urine Sodium (30-90) mmol/L 11/01/22 11/01/22 11/01/22 Range/Units 06:47 11:16 16:16 WBC (4.0-10.5) x10^3/uL RBC (4.1-5.4) x10^6/uL Hgb (12.0-16.0) g/dL Hct (35-47) % MCV (78-100) fL MCH (26-32) pg MCHC (32-36) g/dL RDW (11.5-14.0) % Plt Count (150-450) x10^3/uL MPV (7.5-11.0) fL Gran % (36.0-66.0) % Immature Gran % (Auto) (0.00-0.4) % Nucleat RBC Rel Count (0.00-0.1) % Eos # (Auto) (0-0.5) x10^3/uL Immature Gran # (Auto) (0.00-0.03) x10^3u/L Absolute Lymphs (auto) (1.0-4.6) x10^3/uL Absolute Monos (auto) (0.0-1.3) x10^3/uL Absolute Nucleated RBC (0.00-0.01) x10^3u/L Lymphocytes % (24.0-44.0) % Monocytes % (0.0-12.0) % Eosinophils % (0.00-5.0) % Basophils % (0.0-0.4) % Absolute Granulocytes (1.4-6.9) x10^3/uL Basophils # (0-0.4) x10^3/uL Sodium (137-145) mmol/L Potassium (3.5-5.1) mmol/L Chloride (98-107) mmol/L Carbon Dioxide (22-30) mmol/L Anion Gap (5-15) MEQ/L BUN (7-17) mg/dL Creatinine (0.52-1.04) mg/dL Estimated GFR ML/MIN Glucose (74-106) mg/dL POC Glucometer 173 H 197 H 161 H (74 to 106) mg/dL Calcium (8.4-10.2) mg/dL Total Bilirubin (0.2-1.3) mg/dL AST (14-36) U/L ALT (0-35) U/L Alkaline Phosphatase (38-126) U/L Creatine Kinase (30-135) U/L C-Reactive Prot, Quant (0-10) mg/L Serum Total Protein (6.3-8.2) g/dL Albumin (3.5-5.0) g/dL Ur Random Creatinine MG/DL Urine Sodium (30-90) mmol/L Wound culture (collected 10/30 in clinic, superficial): Growth of pansensitive MSSA and Serratia Radiology Exams: Radiology Procedures Category Date Time Status FLUOROSCOPY UP TO 1 HR Routine Exams 10/31/22 06:46 Completed FOOT (MINIMUM 3 VIEWS) Routine Exams 10/31/22 06:46 Completed Multi-Disciplinary Progress Notes: Multi-Disciplinary Progress Notes 11/01/22 13:48 Physical Therapy Note by Shahid(Cinda#[id number])Yola PT. WAS SEEN THIS P.M. FOR GAIT TRAINING AND RECOMMENDATION OF A.D. AFTER L GREAT TOE AMPUTATION L FOOT D/T OM. PT. ADMITTED DIRECT ADMIT 10/30/22 FOR SX. PMH: MIGRAINES, TYPE II DM, OA. PSH: , TUBAL. PT. RATES L FOOT PN @ 2-3/10; STATES PN GREATER IN L 5TH MT AREA WHICH IS CHRONIC. PT. IS TO BE PWB ON L HEEL. HAS ONE-LEVEL HOME W/ ONE SMALL STEP TO ENTER. PT. IS INTERESTED IN RW FOR HOME. SHE OWNS A STC WHICH DOES NOT PROVIDE ENOUGH SUPPORT @ THIS TIME. PT. IN BED UPON P.T. ARRIVAL TO ROOM. AGREEABLE TO WORK W/ P.T. PERFORMED SUPINE TO SIT AND SIT TO STAND MOD I. AMBULATED ~ 40' W/ RW W/ FIXED WHEELS PWB L LE ON HEEL. ABLE TO CHANGE DIRECTION WITHOUT UNSTEADINESS. ABLE TO AMBULATE TO RESTROOM AND TOILET INDEPENDENTLY W/ USE OF RW WELL. PT. NEEDS RW FOR D/C TO PROVIDE GAIT STABILITY W/ FUNCTIONAL MOBILITY UPON D/C TO PROTECT L FOOT DURING HEALING PROCESS. DX: S/P L GREAT TOE AMPUTATION D/T OM, UNSTEADINESS ON FEET, DIFFICULTY WALKING, L FOOT PN NO FURTHER SKILLED INTERVENTION WARRANTED AT THIS TIME. PT. IS SAFE TO AMBULATE AND TRANSFER W/ ASSIST OF NURSING STAFF @ THIS TIME. Initialized on 11/01/22 13:48 - END OF NOTE 11/01/22 10:49 Case Management Note by Linette Melara S/W PATIENT. SHE PLANS TO RETURN HOME TO HER PLOF AT TIME OF DC. PATIENT USING WALKER FOR FOR PARTIAL WEIGHT BEARING LEFT FOOT IN HOSP. RECEPTIVE TO PT EVAL TO DETERMINE NEED FOR ASSISTIVE DEVICE FOR HOME. WILL DC HOME WITH TO ASSIST NEEDED Initialized on 11/01/22 10:49 - END OF NOTE 11/01/22 09:53 Case Management Note by Nitza Osman S/W [facility] IN PHARMACY- REVIEWED CULTURE REPORTS FROM 10/30/22- WILL LEAVE ANTIBIOTICS ALONE FOR NOW. PHARMACY RECOMMENDS BACTRIM/CIPRO AT GA. S/W TAMARA- IN AGREEMENT WITH PLAN Initialized on 11/01/22 09:53 - END OF NOTE Assessment/Plan (1) Cellulitis of great toe, left Current Visit: No Status: Acute Assessment & Plan: 57-year-old with a history of diabetes and hypertension, here with left first toe cellulitis with likely osteomyelitis. ## Likely left first toe osteomyelitis unable to confirm an MRI, but clinically apparent, with possible sinus tract. Failed outpatient treatment with Levaquin. Likely this was due to the underlying infection. Now status post amputation on 10/31 (POD #1). Wound cultures from superficial swab were growing MSSA and Serratia. Continue daptomycin and Levaquin per Dr. Almaraz Consider stopping the daptomycin given the lack of MRSA on superficial swab, but can also wait for bone culture results Follow-up pathology and culture results from bone Change Zyvox to daptomycin because of interactions with SSRIs Partial weightbearing to left foot Arranging for rolling walker for ambulation ## Acute on chronic kidney injury baseline creatinine appears to be 1.3-1.5, up to 2.2. Lasix, lisinopril, and potassium were held yesterday. Creatinine is stable at 2.2, and K about 5 today. Urine culture returned with FENa of 0.6, consistent with prerenal etiology. Give 1 L normal saline over 10 hours Repeat BMP in the morning ## Type 2 diabetes moderately uncontrolled, with hemoglobin A1c 7.7. Blood glucose is at goal level between 140 and 180. Continue home Januvia and Ozempic Continue moderate dose sliding scale insulin ## Depression Continue home Cymbalta, Wellbutrin ## Insomnia worsened during hospital stay Start Ambien 5 mg p.o. QHS PRN insomnia CODE STATUS: Full code Prophylaxis: Lovenox 40 Dispo: Home after second surgery for closure of wound. Entirety of encounter took place via telemedicine. Patient consented to telemedicine. Code(s): L03.032 - CELLULITIS OF LEFT TOE Telemedicine Encounter - Telemedicine Encounter Telemedicine Encounter: The entirety of this encounter was performed via Telemedicine"
--- NOTE | 2022-11-01 17:23 | PCM.NOTE ---
Date and Time: 11/01/22 172 Subjective Assessment: POD #1 doing well. No complaints. Good appetite at bedside. Denies chest pain, SOB cough Physical Exam - Narrative Narrative Physical Exam: Podiatry Physical Exam OBJECTIVE DATA Vital Signs: Vital Signs - 24 hr Temp Pulse Resp BP BP Pulse Ox 11/01/22 16:00 95.9 F 71 18 92/57 100 11/01/22 11:48 97.1 F 82 17 101/59 96 11/01/22 07:13 96.8 F 62 18 104/60 97 11/01/22 03:50 98.1 F 79 20 118/64 95 10/31/22 23:38 98.3 F 69 18 127/71 98 10/31/22 20:00 98.0 F 68 16 134/60 96 Pain Assessment - Last Documented Pain Intensity 0 Pain Scale Used 0-10 Pain Scale Intake and Output: Intake & Output 10/30/22 10/31/22 11/01/22 11/02/22 11:59 11:59 11:59 11:59 Intake Total 600 720 480 Balance 600 720 480 Weight 116.2 kg 116.2 kg Lab Results: Lab Results-Last 24 Hours 10/30/22 10/31/22 10/31/22 Range/Units 17:17 11:42 20:41 WBC (4.0-10.5) x10^3/uL RBC (4.1-5.4) x10^6/uL Hgb (12.0-16.0) g/dL Hct (35-47) % MCV (78-100) fL MCH (26-32) pg MCHC (32-36) g/dL RDW (11.5-14.0) % Plt Count (150-450) x10^3/uL MPV (7.5-11.0) fL Gran % (36.0-66.0) % Immature Gran % (Auto) (0.00-0.4) % Nucleat RBC Rel Count (0.00-0.1) % Eos # (Auto) (0-0.5) x10^3/uL Immature Gran # (Auto) (0.00-0.03) x10^3u/L Absolute Lymphs (auto) (1.0-4.6) x10^3/uL Absolute Monos (auto) (0.0-1.3) x10^3/uL Absolute Nucleated RBC (0.00-0.01) x10^3u/L Lymphocytes % (24.0-44.0) % Monocytes % (0.0-12.0) % Eosinophils % (0.00-5.0) % Basophils % (0.0-0.4) % Absolute Granulocytes (1.4-6.9) x10^3/uL Basophils # (0-0.4) x10^3/uL Sodium (137-145) mmol/L Potassium (3.5-5.1) mmol/L Chloride (98-107) mmol/L Carbon Dioxide (22-30) mmol/L Anion Gap (5-15) MEQ/L BUN (7-17) mg/dL Creatinine (0.52-1.04) mg/dL Estimated GFR ML/MIN Glucose (74-106) mg/dL POC Glucometer 296 H (74 to 106) mg/dL Calcium (8.4-10.2) mg/dL Total Bilirubin (0.2-1.3) mg/dL AST (14-36) U/L ALT (0-35) U/L Alkaline Phosphatase (38-126) U/L Creatine Kinase (30-135) U/L C-Reactive Prot, Quant 58 H (0-10) mg/L Serum Total Protein (6.3-8.2) g/dL Albumin (3.5-5.0) g/dL Ur Random Creatinine 54.3 MG/DL Urine Sodium 19 L (30-90) mmol/L 11/01/22 11/01/22 11/01/22 Range/Units 04:57 04:57 04:57 WBC 9.2 (4.0-10.5) x10^3/uL RBC 3.48 L (4.1-5.4) x10^6/uL Hgb 10.3 L (12.0-16.0) g/dL Hct 32.4 L (35-47) % MCV 93.1 (78-100) fL MCH 29.6 (26-32) pg MCHC 31.8 L (32-36) g/dL RDW 11.9 (11.5-14.0) % Plt Count 402 (150-450) x10^3/uL MPV 10.7 (7.5-11.0) fL Gran % 75.5 H (36.0-66.0) % Immature Gran % (Auto) 0.2 (0.00-0.4) % Nucleat RBC Rel Count 0.0 (0.00-0.1) % Eos # (Auto) 0.01 (0-0.5) x10^3/uL Immature Gran # (Auto) 0.02 (0.00-0.03) x10^3u/L Absolute Lymphs (auto) 1.62 (1.0-4.6) x10^3/uL Absolute Monos (auto) 0.58 (0.0-1.3) x10^3/uL Absolute Nucleated RBC 0.00 (0.00-0.01) x10^3u/L Lymphocytes % 17.7 L (24.0-44.0) % Monocytes % 6.3 (0.0-12.0) % Eosinophils % 0.1 (0.00-5.0) % Basophils % 0.2 (0.0-0.4) % Absolute Granulocytes 6.92 H (1.4-6.9) x10^3/uL Basophils # 0.02 (0-0.4) x10^3/uL Sodium 136 L (137-145) mmol/L Potassium 5.0 (3.5-5.1) mmol/L Chloride 99 (98-107) mmol/L Carbon Dioxide 25 (22-30) mmol/L Anion Gap 17.3 H (5-15) MEQ/L BUN 52 H (7-17) mg/dL Creatinine 2.18 H (0.52-1.04) mg/dL Estimated GFR 24.9 ML/MIN Glucose 213 H (74-106) mg/dL POC Glucometer (74 to 106) mg/dL Calcium 9.2 (8.4-10.2) mg/dL Total Bilirubin 0.30 (0.2-1.3) mg/dL AST 19 (14-36) U/L ALT 18 (0-35) U/L Alkaline Phosphatase 48 (38-126) U/L Creatine Kinase 29 L (30-135) U/L C-Reactive Prot, Quant (0-10) mg/L Serum Total Protein 7.1 (6.3-8.2) g/dL Albumin 3.7 (3.5-5.0) g/dL Ur Random Creatinine MG/DL Urine Sodium (30-90) mmol/L 11/01/22 11/01/22 11/01/22 Range/Units 06:47 11:16 16:16 WBC (4.0-10.5) x10^3/uL RBC (4.1-5.4) x10^6/uL Hgb (12.0-16.0) g/dL Hct (35-47) % MCV (78-100) fL MCH (26-32) pg MCHC (32-36) g/dL RDW (11.5-14.0) % Plt Count (150-450) x10^3/uL MPV (7.5-11.0) fL Gran % (36.0-66.0) % Immature Gran % (Auto) (0.00-0.4) % Nucleat RBC Rel Count (0.00-0.1) % Eos # (Auto) (0-0.5) x10^3/uL Immature Gran # (Auto) (0.00-0.03) x10^3u/L Absolute Lymphs (auto) (1.0-4.6) x10^3/uL Absolute Monos (auto) (0.0-1.3) x10^3/uL Absolute Nucleated RBC (0.00-0.01) x10^3u/L Lymphocytes % (24.0-44.0) % Monocytes % (0.0-12.0) % Eosinophils % (0.00-5.0) % Basophils % (0.0-0.4) % Absolute Granulocytes (1.4-6.9) x10^3/uL Basophils # (0-0.4) x10^3/uL Sodium (137-145) mmol/L Potassium (3.5-5.1) mmol/L Chloride (98-107) mmol/L Carbon Dioxide (22-30) mmol/L Anion Gap (5-15) MEQ/L BUN (7-17) mg/dL Creatinine (0.52-1.04) mg/dL Estimated GFR ML/MIN Glucose (74-106) mg/dL POC Glucometer 173 H 197 H 161 H (74 to 106) mg/dL Calcium (8.4-10.2) mg/dL Total Bilirubin (0.2-1.3) mg/dL AST (14-36) U/L ALT (0-35) U/L Alkaline Phosphatase (38-126) U/L Creatine Kinase (30-135) U/L C-Reactive Prot, Quant (0-10) mg/L Serum Total Protein (6.3-8.2) g/dL Albumin (3.5-5.0) g/dL Ur Random Creatinine MG/DL Urine Sodium (30-90) mmol/L Radiology Exams: Radiology Procedures Category Date Time Status FLUOROSCOPY UP TO 1 HR Routine Exams 10/31/22 06:46 Completed FOOT (MINIMUM 3 VIEWS) Routine Exams 10/31/22 06:46 Completed Multi-Disciplinary Progress Notes: Multi-Disciplinary Progress Notes 11/01/22 13:48 Physical Therapy Note by Shahid(Cinda#[id number])Yola PT. WAS SEEN THIS P.M. FOR GAIT TRAINING AND RECOMMENDATION OF A.D. AFTER L GREAT TOE AMPUTATION L FOOT D/T OM. PT. ADMITTED DIRECT ADMIT 10/30/22 FOR SX. PMH: MIGRAINES, TYPE II DM, OA. PSH: , TUBAL. PT. RATES L FOOT PN @ 2-3/10; STATES PN GREATER IN L 5TH MT AREA WHICH IS CHRONIC. PT. IS TO BE PWB ON L HEEL. HAS ONE-LEVEL HOME W/ ONE SMALL STEP TO ENTER. PT. IS INTERESTED IN RW FOR HOME. SHE OWNS A STC WHICH DOES NOT PROVIDE ENOUGH SUPPORT @ THIS TIME. PT. IN BED UPON P.T. ARRIVAL TO ROOM. AGREEABLE TO WORK W/ P.T. PERFORMED SUPINE TO SIT AND SIT TO STAND MOD I. AMBULATED ~ 40' W/ RW W/ FIXED WHEELS PWB L LE ON HEEL. ABLE TO CHANGE DIRECTION WITHOUT UNSTEADINESS. ABLE TO AMBULATE TO RESTROOM AND TOILET INDEPENDENTLY W/ USE OF RW WELL. PT. NEEDS RW FOR D/C TO PROVIDE GAIT STABILITY W/ FUNCTIONAL MOBILITY UPON D/C TO PROTECT L FOOT DURING HEALING PROCESS. DX: S/P L GREAT TOE AMPUTATION D/T OM, UNSTEADINESS ON FEET, DIFFICULTY WALKING, L FOOT PN NO FURTHER SKILLED INTERVENTION WARRANTED AT THIS TIME. PT. IS SAFE TO AMBULATE AND TRANSFER W/ ASSIST OF NURSING STAFF @ THIS TIME. Initialized on 11/01/22 13:48 - END OF NOTE 11/01/22 10:49 Case Management Note by Linette Melara S/W PATIENT. SHE PLANS TO RETURN HOME TO HER PLOF AT TIME OF DC. PATIENT USING WALKER FOR FOR PARTIAL WEIGHT BEARING LEFT FOOT IN HOSP. RECEPTIVE TO PT EVAL TO DETERMINE NEED FOR ASSISTIVE DEVICE FOR HOME. WILL DC HOME WITH TO ASSIST NEEDED Initialized on 11/01/22 10:49 - END OF NOTE 11/01/22 09:53 Case Management Note by Nitza Osman S/W [facility] IN PHARMACY- REVIEWED CULTURE REPORTS FROM 10/30/22- WILL LEAVE ANTIBIOTICS ALONE FOR NOW. PHARMACY RECOMMENDS BACTRIM/CIPRO AT DC. S/W TAM[facility]- IN AGREEMENT WITH PLAN Initialized on 11/01/22 09:53 - END OF NOTE Assessment/Plan (1) Osteomyelitis Current Visit: Yes Status: Acute Assessment & Plan: POD #1 s/p amputation (open great toe) Progressing without complication Cellulitis resolved at this time. Negative necrosis or residual signs of infection at wound margins. Blanchable on compression Packing pulled and dressings reapplied cosisting of iodine adaptic 4x4 kerlix abd and home Continue IV abx Levaquin pharmacy to dose. Will likely D/c Ciprofloxacin 500 mg BID and Bactrim 80/400 mg BID Continue partial weight bearing to heel of operative extremity DVT prophylaxis as prescribed aspirin 325 mg PO daily Will likely return on Sunday for DPC depending on appearance of wound Patient will be allowed to D/c once procedure is preformed assuming all discharge criteria met by then Will follow with you Code(s): M86.9 - OSTEOMYELITIS, UNSPECIFIED (2) Cellulitis of great toe, left Current Visit: No Status: Acute Code(s): L03.032 - CELLULITIS OF LEFT TOE (3) Diabetic foot ulcer Current Visit: No Status: Acute Qualifiers: Diabetic foot ulcer location: toe Diabetes mellitus type: type 2 Laterality: left Non-pressure ulcer stage: limited to breakdown of skin Qualified Code(s): E11.621 - Type 2 diabetes mellitus with foot ulcer; L97.521 - Non-pressure chronic ulcer of other part of left foot limited to breakdown of skin Code(s): E11.621 - TYPE 2 DIABETES MELLITUS WITH FOOT ULCER; L97.509 - NON- PRESSURE CHRONIC ULCER OTH PRT UNSP FOOT W UNSP SEVERITY (4) Pain in left foot Current Visit: No Status: Acute Code(s): M79.672 - PAIN IN LEFT FOOT
[2022-11-01] MEDS: Cipro 500 MG PO SCH (17:46)
[2022-11-01] MEDS: Sodium Chloride 0.9% 1000 ML 1,000 ML IV SCH (18:00)
[2022-11-01] MEDS: Ambien 5 MG Tablet PO PRN (22:12)
[2022-11-01] MEDS: Cymbalta 30 MG Capsule PO SCH (23:54)
[2022-11-02] MEDS: Sodium Chloride 0.9% 1000 ML 1,000 ML IV SCH ×3 (01:26→11:12)
[2022-11-02 05:29] LABS: Absolute Neutrophil Ct (ANC) 3.12 x10^3/uL (1.4-6.9); BASOPHIL % 0.7 % (0.0-0.4); Basophil (Absolute #) 0.05 x10^3/uL (0-0.4); Eosinophil % 3.9 % (0.00-5.0); Eosinophil (Absolute #) 0.27 x10^3/uL (0-0.5); Hematocrit 30.8 % (35-47); Hemoglobin 9.6 g/dL (12.0-16.0); IMMATURE GRAN # 0.01 x10^3u/L (0.00-0.03); IMMATURE GRAN % 0.1 % (0.00-0.4); Lymphocyte (Absolute #) 2.94 x10^3/uL (1.0-4.6); Lymphocytes % 42.9 % (24.0-44.0); Mean Cell Volume 95.4 fL (78-100); Mean Corpuscular Hemoglobin 29.7 pg (26-32); Mean Corpuscular Hgb Concent. 31.2 g/dL (32-36); Mean Platelet Volume 10.5 fL (7.5-11.0); Monocyte (Absolute #) 0.46 x10^3/uL (0.0-1.3); Monocytes % 6.7 % (0.0-12.0); Neutrophil % 45.7 % (36.0-66.0); Platelet Count 380 x10^3/uL (150-450); Red Blood Count 3.23 x10^6/uL (4.1-5.4); White Blood Count 6.9 x10^3/uL (4.0-10.5)
[2022-11-02 06:05] LABS: ALBUMIN 3.3 g/dL (3.5-5.0); ANION GAP 12.6 MEQ/L (5-15); BILIRUBIN,TOTAL 0.2 mg/dL (0.2-1.3); Calcium 8.3 mg/dL (8.4-10.2); Creatinine 1 1.85 mg/dL (0.52-1.04); EST GLOMERULAR FILTRATION RATE 30.1 ML/MIN; Potassium 4.8 mmol/L (3.5-5.1); Total Protein 6.4 g/dL (6.3-8.2)
[2022-11-02] MEDS: ENOXAPARIN SODIUM SQ SCH (10:07)
[2022-11-02] MEDS: Ecotrin 325 MG PO SCH (10:08)
[2022-11-02] MEDS: Tricor 145 MG PO SCH (10:08)
[2022-11-02] MEDS: Lyrica 50MG PO SCH (10:08)
[2022-11-02] MEDS: Wellbutrin XL 150 MG PO SCH ×2 (10:08→21:25)
[2022-11-02] MEDS: DAPTOmycin 700 MG in Sodium Chloride Flush 30 ML*** 14 ML IV SCH (10:16)
[2022-11-02] MEDS: Cymbalta 30 MG Capsule PO SCH (10:24)
[2022-11-02] MEDS: NORCO 5/325 MG PO PRN (11:12)
[2022-11-02] MEDS: Januvia 50 MG PO SCH (12:08)
--- NOTE | 2022-11-02 14:05 | PCM.NOTE ---
Date and Time: 11/02/22 1404 Subjective Assessment: No acute events overnight. Blood sugar was running high at times, but she is declining her sliding scale insulin. She is complaining of a headache, but states this is chronic. No pain or drainage from her foot. Eating well. Objective Exam General Appearance: no apparent distress Neurologic Exam: alert, oriented x 3, normal mood/affect Skin Exam: other (Foot dressing clean, dry, and intact) Eye Exam: eyes nml inspection Respiratory Exam: normal breath sounds, lungs clear, No respiratory distress Cardiovascular Exam: regular rate/rhythm, No murmur, No edema Gastrointestinal/Abdomen Exam: soft, No tenderness, No distention OBJECTIVE DATA Vital Signs: Vital Signs - 24 hr Temp Pulse Resp BP BP Pulse Ox 11/02/22 11:53 97.5 F 75 17 122/60 96 11/02/22 07:08 97.5 F 71 17 104/56 97 11/02/22 04:00 17 11/02/22 00:12 98.3 F 70 18 103/55 96 11/01/22 23:55 98.3 F 73 18 106/55 118/64 98 11/01/22 19:39 98.3 F 73 18 106/55 98 11/01/22 16:00 95.9 F 71 18 92/57 100 Pain Assessment - Last Documented Pain Intensity 1 Pain Scale Used 0-10 Pain Scale Intake and Output: Intake & Output 10/31/22 11/01/22 11/02/22 11/03/22 11:59 11:59 11:59 11:59 Intake Total 803 700 5519 240 Balance 027 835 3782 240 Weight 116.2 kg 116.2 kg Lab Results: Lab Results-Last 24 Hours 10/31/22 11/01/22 11/01/22 Range/Units 11:42 16:16 20:47 WBC (4.0-10.5) x10^3/uL RBC (4.1-5.4) x10^6/uL Hgb (12.0-16.0) g/dL Hct (35-47) % MCV (78-100) fL MCH (26-32) pg MCHC (32-36) g/dL RDW (11.5-14.0) % Plt Count (150-450) x10^3/uL MPV (7.5-11.0) fL Gran % (36.0-66.0) % Immature Gran % (Auto) (0.00-0.4) % Nucleat RBC Rel Count (0.00-0.1) % Eos # (Auto) (0-0.5) x10^3/uL Immature Gran # (Auto) (0.00-0.03) x10^3u/L Absolute Lymphs (auto) (1.0-4.6) x10^3/uL Absolute Monos (auto) (0.0-1.3) x10^3/uL Absolute Nucleated RBC (0.00-0.01) x10^3u/L Lymphocytes % (24.0-44.0) % Monocytes % (0.0-12.0) % Eosinophils % (0.00-5.0) % Basophils % (0.0-0.4) % Absolute Granulocytes (1.4-6.9) x10^3/uL Basophils # (0-0.4) x10^3/uL Sodium (137-145) mmol/L Potassium (3.5-5.1) mmol/L Chloride (98-107) mmol/L Carbon Dioxide (22-30) mmol/L Anion Gap (5-15) MEQ/L BUN (7-17) mg/dL Creatinine (0.52-1.04) mg/dL Estimated GFR ML/MIN Glucose (74-106) mg/dL POC Glucometer 161 H 220 H (74 to 106) mg/dL Calcium (8.4-10.2) mg/dL Total Bilirubin (0.2-1.3) mg/dL AST (14-36) U/L ALT (0-35) U/L Alkaline Phosphatase (38-126) U/L Serum Total Protein (6.3-8.2) g/dL Albumin (3.5-5.0) g/dL Ur Random Urea Nitrogn 495 (Not Estab.) mg/dL 11/02/22 11/02/22 11/02/22 Range/Units 04:35 04:35 06:41 WBC 6.9 (4.0-10.5) x10^3/uL RBC 3.23 L (4.1-5.4) x10^6/uL Hgb 9.6 L (12.0-16.0) g/dL Hct 30.8 L (35-47) % MCV 95.4 (78-100) fL MCH 29.7 (26-32) pg MCHC 31.2 L (32-36) g/dL RDW 12.0 (11.5-14.0) % Plt Count 380 (150-450) x10^3/uL MPV 10.5 (7.5-11.0) fL Gran % 45.7 (36.0-66.0) % Immature Gran % (Auto) 0.1 (0.00-0.4) % Nucleat RBC Rel Count 0.0 (0.00-0.1) % Eos # (Auto) 0.27 (0-0.5) x10^3/uL Immature Gran # (Auto) 0.01 (0.00-0.03) x10^3u/L Absolute Lymphs (auto) 2.94 (1.0-4.6) x10^3/uL Absolute Monos (auto) 0.46 (0.0-1.3) x10^3/uL Absolute Nucleated RBC 0.00 (0.00-0.01) x10^3u/L Lymphocytes % 42.9 (24.0-44.0) % Monocytes % 6.7 (0.0-12.0) % Eosinophils % 3.9 (0.00-5.0) % Basophils % 0.7 (0.0-0.4) % Absolute Granulocytes 3.12 (1.4-6.9) x10^3/uL Basophils # 0.05 (0-0.4) x10^3/uL Sodium 140 (137-145) mmol/L Potassium 4.8 (3.5-5.1) mmol/L Chloride 107 (98-107) mmol/L Carbon Dioxide 26 (22-30) mmol/L Anion Gap 12.6 (5-15) MEQ/L BUN 46 H (7-17) mg/dL Creatinine 1.85 H (0.52-1.04) mg/dL Estimated GFR 30.1 ML/MIN Glucose 104 (74-106) mg/dL POC Glucometer 92 (74 to 106) mg/dL Calcium 8.3 L (8.4-10.2) mg/dL Total Bilirubin 0.20 (0.2-1.3) mg/dL AST 16 (14-36) U/L ALT 17 (0-35) U/L Alkaline Phosphatase 46 (38-126) U/L Serum Total Protein 6.4 (6.3-8.2) g/dL Albumin 3.3 L (3.5-5.0) g/dL Ur Random Urea Nitrogn (Not Estab.) mg/dL 11/02/22 Range/Units 11:30 WBC (4.0-10.5) x10^3/uL RBC (4.1-5.4) x10^6/uL Hgb (12.0-16.0) g/dL Hct (35-47) % MCV (78-100) fL MCH (26-32) pg MCHC (32-36) g/dL RDW (11.5-14.0) % Plt Count (150-450) x10^3/uL MPV (7.5-11.0) fL Gran % (36.0-66.0) % Immature Gran % (Auto) (0.00-0.4) % Nucleat RBC Rel Count (0.00-0.1) % Eos # (Auto) (0-0.5) x10^3/uL Immature Gran # (Auto) (0.00-0.03) x10^3u/L Absolute Lymphs (auto) (1.0-4.6) x10^3/uL Absolute Monos (auto) (0.0-1.3) x10^3/uL Absolute Nucleated RBC (0.00-0.01) x10^3u/L Lymphocytes % (24.0-44.0) % Monocytes % (0.0-12.0) % Eosinophils % (0.00-5.0) % Basophils % (0.0-0.4) % Absolute Granulocytes (1.4-6.9) x10^3/uL Basophils # (0-0.4) x10^3/uL Sodium (137-145) mmol/L Potassium (3.5-5.1) mmol/L Chloride (98-107) mmol/L Carbon Dioxide (22-30) mmol/L Anion Gap (5-15) MEQ/L BUN (7-17) mg/dL Creatinine (0.52-1.04) mg/dL Estimated GFR ML/MIN Glucose (74-106) mg/dL POC Glucometer 221 H (74 to 106) mg/dL Calcium (8.4-10.2) mg/dL Total Bilirubin (0.2-1.3) mg/dL AST (14-36) U/L ALT (0-35) U/L Alkaline Phosphatase (38-126) U/L Serum Total Protein (6.3-8.2) g/dL Albumin (3.5-5.0) g/dL Ur Random Urea Nitrogn (Not Estab.) mg/dL Multi-Disciplinary Progress Notes: Multi-Disciplinary Progress Notes 11/02/22 11:52 Case Management Note by Linette Melara S/W PATIENT. SHE PLANS TO RETURN HOME AT TIME OF DC. SHE DENIES ANY NEEDS OTHER THAN THE WALKER THAT WILL BE DELIVERED PRIOR TO DC. SHE HAS EVERTHING ELSE THAT SHE NEEDS AT HOME AND HAS ALL THE SUPPORT AND ASSIST SHE NEEDS FROM HER SPOUSE AND SON. Initialized on 11/02/22 11:52 - END OF NOTE 11/02/22 11:47 Case Management Note by Nitza Osman WALKER ORDERED THRU [facility] USING [place]- TO BE DELIVER TO [facility] PRIOR TO DC Initialized on 11/02/22 11:47 - END OF NOTE Assessment/Plan (1) Cellulitis of great toe, left Current Visit: No Status: Acute Assessment & Plan: 57-year-old with a history of diabetes and hypertension, here with left first toe cellulitis with likely osteomyelitis. ## Likely left first toe osteomyelitis unable to confirm on MRI, but clinically apparent, with possible sinus tract. Failed outpatient treatment with Levaquin. Likely this was due to the underlying infection. Now status post amputation on 10/31 (POD #2). Wound cultures from superficial swab were growing MSSA and Serratia. Continue daptomycin and Levaquin per Dr. Almaraz Follow-up pathology and culture results from bone Partial weightbearing to left foot Arranging for rolling walker for ambulation Return to OR tomorrow for wound closure Likely home tomorrow ## Acute on chronic kidney injury baseline creatinine appears to be 1.3-1.5, up to 2.2. Lasix, lisinopril, and potassium were held. Urine electrolytes returned with FENa of 0.6, consistent with prerenal etiology. Creatinine down to 1.8 today, approaching baseline. Repeat BMP in the morning ## Type 2 diabetes moderately uncontrolled, with hemoglobin A1c 7.7. Blood glucose a little above goal, but patient does not want to take sliding scale insulin. Continue home Januvia and Ozempic Continue moderate dose sliding scale insulin ## Depression Continue home Cymbalta, Wellbutrin ## Insomnia improved after Ambien last night Continue Ambien 5 mg p.o. QHS PRN insomnia CODE STATUS: Full code Prophylaxis: Lovenox 40 Dispo: Home tomorrow after surgery to close wound, and follow-up with Dr. Almaraz. Code(s): L03.032 - CELLULITIS OF LEFT TOE Telemedicine Encounter - Telemedicine Encounter Telemedicine Encounter: The entirety of this encounter was performed via Telemedicine"
--- NOTE | 2022-11-02 16:34 | PCM.NOTE ---
Date and Time: 11/02/22 1634 Subjective Assessment: POD #2 doing well. No complaints. Patient with migraine. Denies chest pain, SOB cough Physical Exam - Narrative Narrative Physical Exam: Podiatry Physical Exam OBJECTIVE DATA Vital Signs: Vital Signs - 24 hr Temp Pulse Resp BP BP Pulse Ox 11/02/22 11:53 97.5 F 75 17 122/60 96 11/02/22 07:08 97.5 F 71 17 104/56 97 11/02/22 04:00 17 11/02/22 00:12 98.3 F 70 18 103/55 96 11/01/22 23:55 98.3 F 73 18 106/55 118/64 98 11/01/22 19:39 98.3 F 73 18 106/55 98 Pain Assessment - Last Documented Pain Intensity 1 Pain Scale Used 0-10 Pain Scale Intake and Output: Intake & Output 10/31/22 11/01/22 11/02/22 11/03/22 11:59 11:59 11:59 11:59 Intake Total 060 846 3567 240 Balance 358 880 1889 240 Weight 116.2 kg 116.2 kg Lab Results: Lab Results-Last 24 Hours 10/31/22 11/01/22 11/02/22 Range/Units 11:42 20:47 04:35 WBC 6.9 (4.0-10.5) x10^3/uL RBC 3.23 L (4.1-5.4) x10^6/uL Hgb 9.6 L (12.0-16.0) g/dL Hct 30.8 L (35-47) % MCV 95.4 (78-100) fL MCH 29.7 (26-32) pg MCHC 31.2 L (32-36) g/dL RDW 12.0 (11.5-14.0) % Plt Count 380 (150-450) x10^3/uL MPV 10.5 (7.5-11.0) fL Gran % 45.7 (36.0-66.0) % Immature Gran % (Auto) 0.1 (0.00-0.4) % Nucleat RBC Rel Count 0.0 (0.00-0.1) % Eos # (Auto) 0.27 (0-0.5) x10^3/uL Immature Gran # (Auto) 0.01 (0.00-0.03) x10^3u/L Absolute Lymphs (auto) 2.94 (1.0-4.6) x10^3/uL Absolute Monos (auto) 0.46 (0.0-1.3) x10^3/uL Absolute Nucleated RBC 0.00 (0.00-0.01) x10^3u/L Lymphocytes % 42.9 (24.0-44.0) % Monocytes % 6.7 (0.0-12.0) % Eosinophils % 3.9 (0.00-5.0) % Basophils % 0.7 (0.0-0.4) % Absolute Granulocytes 3.12 (1.4-6.9) x10^3/uL Basophils # 0.05 (0-0.4) x10^3/uL Sodium (137-145) mmol/L Potassium (3.5-5.1) mmol/L Chloride (98-107) mmol/L Carbon Dioxide (22-30) mmol/L Anion Gap (5-15) MEQ/L BUN (7-17) mg/dL Creatinine (0.52-1.04) mg/dL Estimated GFR ML/MIN Glucose (74-106) mg/dL POC Glucometer 220 H (74 to 106) mg/dL Calcium (8.4-10.2) mg/dL Total Bilirubin (0.2-1.3) mg/dL AST (14-36) U/L ALT (0-35) U/L Alkaline Phosphatase (38-126) U/L Serum Total Protein (6.3-8.2) g/dL Albumin (3.5-5.0) g/dL Ur Random Urea Nitrogn 495 (Not Estab.) mg/dL 11/02/22 11/02/22 11/02/22 Range/Units 04:35 06:41 11:30 WBC (4.0-10.5) x10^3/uL RBC (4.1-5.4) x10^6/uL Hgb (12.0-16.0) g/dL Hct (35-47) % MCV (78-100) fL MCH (26-32) pg MCHC (32-36) g/dL RDW (11.5-14.0) % Plt Count (150-450) x10^3/uL MPV (7.5-11.0) fL Gran % (36.0-66.0) % Immature Gran % (Auto) (0.00-0.4) % Nucleat RBC Rel Count (0.00-0.1) % Eos # (Auto) (0-0.5) x10^3/uL Immature Gran # (Auto) (0.00-0.03) x10^3u/L Absolute Lymphs (auto) (1.0-4.6) x10^3/uL Absolute Monos (auto) (0.0-1.3) x10^3/uL Absolute Nucleated RBC (0.00-0.01) x10^3u/L Lymphocytes % (24.0-44.0) % Monocytes % (0.0-12.0) % Eosinophils % (0.00-5.0) % Basophils % (0.0-0.4) % Absolute Granulocytes (1.4-6.9) x10^3/uL Basophils # (0-0.4) x10^3/uL Sodium 140 (137-145) mmol/L Potassium 4.8 (3.5-5.1) mmol/L Chloride 107 (98-107) mmol/L Carbon Dioxide 26 (22-30) mmol/L Anion Gap 12.6 (5-15) MEQ/L BUN 46 H (7-17) mg/dL Creatinine 1.85 H (0.52-1.04) mg/dL Estimated GFR 30.1 ML/MIN Glucose 104 (74-106) mg/dL POC Glucometer 92 221 H (74 to 106) mg/dL Calcium 8.3 L (8.4-10.2) mg/dL Total Bilirubin 0.20 (0.2-1.3) mg/dL AST 16 (14-36) U/L ALT 17 (0-35) U/L Alkaline Phosphatase 46 (38-126) U/L Serum Total Protein 6.4 (6.3-8.2) g/dL Albumin 3.3 L (3.5-5.0) g/dL Ur Random Urea Nitrogn (Not Estab.) mg/dL Multi-Disciplinary Progress Notes: Multi-Disciplinary Progress Notes 11/02/22 11:52 Case Management Note by Linette Melara S/W PATIENT. SHE PLANS TO RETURN HOME AT TIME OF DC. SHE DENIES ANY NEEDS OTHER THAN THE WALKER THAT WILL BE DELIVERED PRIOR TO DC. SHE HAS EVERTHING ELSE THAT SHE NEEDS AT HOME AND HAS ALL THE SUPPORT AND ASSIST SHE NEEDS FROM HER SPOUSE AND SON. Initialized on 11/02/22 11:52 - END OF NOTE 11/02/22 11:47 Case Management Note by Nitza Osman WALKER ORDERED THRU [facility] USING [place]- TO BE DELIVER TO [facility] PRIOR TO DC Initialized on 11/02/22 11:47 - END OF NOTE Assessment/Plan (1) Osteomyelitis Current Visit: Yes Status: Acute Assessment & Plan: POD #1 s/p amputation (open great toe) Progressing without complication Cellulitis resolved at this time. Negative necrosis or residual signs of infection at wound margins. Blanchable on compression Packing pulled and dressings reapplied cosisting of iodine adaptic 4x4 kerlix abd and home Continue IV abx Levaquin pharmacy to dose. Will likely D/c Ciprofloxacin 500 mg BID and Bactrim 80/400 mg BID Continue partial weight bearing to heel of operative extremity DVT prophylaxis as prescribed aspirin 325 mg PO daily NPO midnight 11/03/2022Sunday for DPC Patient will be allowed to D/c once procedure is preformed assuming all discharge criteria met by then Will follow with you Code(s): M86.9 - OSTEOMYELITIS, UNSPECIFIED (2) Cellulitis of great toe, left Current Visit: No Status: Acute Code(s): L03.032 - CELLULITIS OF LEFT TOE (3) Diabetic foot ulcer Current Visit: No Status: Acute Qualifiers: Diabetic foot ulcer location: toe Diabetes mellitus type: type 2 Laterality: left Non-pressure ulcer stage: limited to breakdown of skin Qualified Code(s): E11.621 - Type 2 diabetes mellitus with foot ulcer; L97.521 - Non-pressure chronic ulcer of other part of left foot limited to breakdown of skin Code(s): E11.621 - TYPE 2 DIABETES MELLITUS WITH FOOT ULCER; L97.509 - NON- PRESSURE CHRONIC ULCER OTH PRT UNSP FOOT W UNSP SEVERITY (4) Pain in left foot Current Visit: No Status: Acute Code(s): M79.672 - PAIN IN LEFT FOOT
[2022-11-02] MEDS: Cipro 500 MG PO SCH (17:08)
[2022-11-02] MEDS: Ambien 5 MG Tablet PO PRN (21:25)
[2022-11-03] MEDS: Sodium Chloride 0.9% 1000 ML 1,000 ML IV SCH (03:38)
[2022-11-03 04:49] LABS: Absolute Neutrophil Ct (ANC) 2.15 x10^3/uL (1.4-6.9); BASOPHIL % 0.8 % (0.0-0.4); Basophil (Absolute #) 0.05 x10^3/uL (0-0.4); Eosinophil % 5.1 % (0.00-5.0); Eosinophil (Absolute #) 0.32 x10^3/uL (0-0.5); Hematocrit 29.6 % (35-47); Hemoglobin 9.2 g/dL (12.0-16.0); IMMATURE GRAN # 0.02 x10^3u/L (0.00-0.03); IMMATURE GRAN % 0.3 % (0.00-0.4); Lymphocyte (Absolute #) 3.15 x10^3/uL (1.0-4.6); Lymphocytes % 50.3 % (24.0-44.0); Mean Cell Volume 96.1 fL (78-100); Mean Corpuscular Hemoglobin 29.9 pg (26-32); Mean Corpuscular Hgb Concent. 31.1 g/dL (32-36); Mean Platelet Volume 10.4 fL (7.5-11.0); Monocyte (Absolute #) 0.57 x10^3/uL (0.0-1.3); Monocytes % 9.1 % (0.0-12.0); Neutrophil % 34.4 % (36.0-66.0); Platelet Count 383 x10^3/uL (150-450); Red Blood Count 3.08 x10^6/uL (4.1-5.4); White Blood Count 6.3 x10^3/uL (4.0-10.5)
[2022-11-03 05:29] LABS: ALBUMIN 3.2 g/dL (3.5-5.0); ANION GAP 9.4 MEQ/L (5-15); BILIRUBIN,TOTAL 0.2 mg/dL (0.2-1.3); Calcium 8.5 mg/dL (8.4-10.2); Creatinine 1 1.54 mg/dL (0.52-1.04); EST GLOMERULAR FILTRATION RATE 37.2 ML/MIN; Potassium 4.5 mmol/L (3.5-5.1); Total Protein 6.2 g/dL (6.3-8.2)
[2022-11-03] MEDS ORDERED: Xylocaine-Mpf 2% 5 Ml Vial ONE (08:26)
[2022-11-03] MEDS ORDERED: DIPRIVAN 200 MG/20 ML IV ONE ×2 (08:27→08:29)
[2022-11-03] MEDS ORDERED: Versed 2 MG/2 ML Injection ONE (08:27)
[2022-11-03] MEDS ORDERED: Zemuron 100 MG/10 ML ONE (08:29)
[2022-11-03] MEDS ORDERED: SUBLIMAZE 100 MCG/2 ML ONE (08:32)
[2022-11-03] MEDS ORDERED: BRIDION 200MG/2ML IV ONE (08:33)
[2022-11-03] MEDS ORDERED: Lactated Ringers 1,000 ML IV ONE (08:40)
[2022-11-03] MEDS ORDERED: XYLOCAINE 1% HCL 20 ML MDV ONE (08:53)
[2022-11-03] MEDS ORDERED: Marcaine Mpf 0.5% Vial 30 Ml ONE (08:53)
[2022-11-03] MEDS ORDERED: OFIRMEV 100 ML IV ONE (09:13)
[2022-11-03] MEDS ORDERED: Zofran 4 MG/2 ML VIAL ONE (09:38)
[2022-11-03] MEDS ORDERED: Cipro 500 MG PO SCH (10:00)
[2022-11-03] MEDS: Ecotrin 325 MG PO SCH (11:24)
[2022-11-03] MEDS: ENOXAPARIN SODIUM SQ SCH (11:25)
[2022-11-03] MEDS: Lyrica 50MG PO SCH (11:25)
[2022-11-03] MEDS: Wellbutrin XL 150 MG PO SCH (11:25)
[2022-11-03] MEDS: Tricor 145 MG PO SCH (11:25)
[2022-11-03] MEDS: Januvia 50 MG PO SCH (11:25)
[2022-11-03] MEDS: Cymbalta 30 MG Capsule PO SCH (11:25)
[2022-11-03 11:59] VITALS: BP 126/66; PULSE 68; O2SAT 99
--- NOTE | 2022-11-03 12:21 | PCM.DS ---
Discharge Summary Date of Admission: 10/30/22 16:05 Date of Discharge: 11/03/22 Admitting Physician: CALIXTO JIANG MD Primary Care Provider: QUETA OJEDA Allergies Allergies Penicillins Allergy (Verified 06/24/22 09:08) codeine Adverse Reaction (Verified 06/24/22 09:08) Hospital Summary - Hospital Course Hospital Course: Underwent successful closure by podiatry. Plan is for discharge today with wound care, antibiotics and analgesia per podiatry. - Vitals & Intake/Output Vital Signs: Vital Signs Temperature 98.0 F 11/03/22 11:58 Pulse Rate 68 11/03/22 11:58 Respiratory Rate 16 11/03/22 11:58 Blood Pressure 126/66 11/03/22 11:58 O2 Sat by Pulse Oximetry 99 11/03/22 11:58 Intake & Output: Intake & Output 11/01/22 11/02/22 11/03/22 11/04/22 11:59 11:59 11:59 11:59 Intake Total 720 1580 3869 Balance 720 1580 3869 Weight 116.2 kg 116.2 kg - Lab Result Diagrams: 11/03/22 04:15 11/03/22 04:15 Lab Results-Last 24 Hrs: Lab Results-Last 24 Hours 11/02/22 11/02/22 11/03/22 Range/Units 16:39 20:38 04:15 WBC 6.3 (4.0-10.5) x10^3/uL RBC 3.08 L (4.1-5.4) x10^6/uL Hgb 9.2 L (12.0-16.0) g/dL Hct 29.6 L (35-47) % MCV 96.1 (78-100) fL MCH 29.9 (26-32) pg MCHC 31.1 L (32-36) g/dL RDW 12.0 (11.5-14.0) % Plt Count 383 (150-450) x10^3/uL MPV 10.4 (7.5-11.0) fL Gran % 34.4 L (36.0-66.0) % Immature Gran % (Auto) 0.3 (0.00-0.4) % Nucleat RBC Rel Count 0.0 (0.00-0.1) % Eos # (Auto) 0.32 (0-0.5) x10^3/uL Immature Gran # (Auto) 0.02 (0.00-0.03) x10^3u/L Absolute Lymphs (auto) 3.15 (1.0-4.6) x10^3/uL Absolute Monos (auto) 0.57 (0.0-1.3) x10^3/uL Absolute Nucleated RBC 0.00 (0.00-0.01) x10^3u/L Lymphocytes % 50.3 H (24.0-44.0) % Monocytes % 9.1 (0.0-12.0) % Eosinophils % 5.1 H (0.00-5.0) % Basophils % 0.8 (0.0-0.4) % Absolute Granulocytes 2.15 (1.4-6.9) x10^3/uL Basophils # 0.05 (0-0.4) x10^3/uL Sodium (137-145) mmol/L Potassium (3.5-5.1) mmol/L Chloride (98-107) mmol/L Carbon Dioxide (22-30) mmol/L Anion Gap (5-15) MEQ/L BUN (7-17) mg/dL Creatinine (0.52-1.04) mg/dL Estimated GFR ML/MIN Glucose (74-106) mg/dL POC Glucometer 165 H 196 H (74 to 106) mg/dL Calcium (8.4-10.2) mg/dL Total Bilirubin (0.2-1.3) mg/dL AST (14-36) U/L ALT (0-35) U/L Alkaline Phosphatase (38-126) U/L Serum Total Protein (6.3-8.2) g/dL Albumin (3.5-5.0) g/dL 11/03/22 11/03/22 11/03/22 Range/Units 04:15 07:12 11:23 WBC (4.0-10.5) x10^3/uL RBC (4.1-5.4) x10^6/uL Hgb (12.0-16.0) g/dL Hct (35-47) % MCV (78-100) fL MCH (26-32) pg MCHC (32-36) g/dL RDW (11.5-14.0) % Plt Count (150-450) x10^3/uL MPV (7.5-11.0) fL Gran % (36.0-66.0) % Immature Gran % (Auto) (0.00-0.4) % Nucleat RBC Rel Count (0.00-0.1) % Eos # (Auto) (0-0.5) x10^3/uL Immature Gran # (Auto) (0.00-0.03) x10^3u/L Absolute Lymphs (auto) (1.0-4.6) x10^3/uL Absolute Monos (auto) (0.0-1.3) x10^3/uL Absolute Nucleated RBC (0.00-0.01) x10^3u/L Lymphocytes % (24.0-44.0) % Monocytes % (0.0-12.0) % Eosinophils % (0.00-5.0) % Basophils % (0.0-0.4) % Absolute Granulocytes (1.4-6.9) x10^3/uL Basophils # (0-0.4) x10^3/uL Sodium 139 (137-145) mmol/L Potassium 4.5 (3.5-5.1) mmol/L Chloride 107 (98-107) mmol/L Carbon Dioxide 28 (22-30) mmol/L Anion Gap 9.4 (5-15) MEQ/L BUN 40 H (7-17) mg/dL Creatinine 1.54 H (0.52-1.04) mg/dL Estimated GFR 37.2 ML/MIN Glucose 121 H (74-106) mg/dL POC Glucometer 95 95 (74 to 106) mg/dL Calcium 8.5 (8.4-10.2) mg/dL Total Bilirubin 0.20 (0.2-1.3) mg/dL AST 23 (14-36) U/L ALT 22 (0-35) U/L Alkaline Phosphatase 50 (38-126) U/L Serum Total Protein 6.2 L (6.3-8.2) g/dL Albumin 3.2 L (3.5-5.0) g/dL Micro Results-Entire Visit: Microbiology 10/30/22 01:30 Blood Culture - Preliminary Blood 10/30/22 01:35 Blood Culture - Preliminary Blood Accuchecks Date 11/03/22 Date 11/03/22 Date 11/02/22 Date 11/02/22 Time 11:58 Time 07:24 Time 20:45 Time 16:46 - Procedures and Test Procedures and Tests throughout Hospitalization: Therapy Orders & Screens 11/01/22 10:52 PT Gait Training ONCE Comment: Physician Instructions: Reason For Exam: EVAL FOR NEED FOR ASSISTIVE DEVICE Discharge Exam General Appearance: no apparent distress, alert Neurologic Exam: alert, oriented x 3, cooperative, 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, normal mood/affect, nml cerebellar function Eye Exam: PERRL, EOMI, eyes nml inspection Ears, Nose, Throat Exam: normal ENT inspection Neck Exam: normal inspection, non-tender, supple, full range of motion Respiratory Exam: normal breath sounds, lungs clear Cardiovascular Exam: regular rate/rhythm, normal heart sounds, other Back Exam: normal range of motion Extremity Exam: normal inspection, normal range of motion Skin Exam: normal color Final Diagnosis/Problem List - Final Discharge Diagnosis/Problem (1) Osteomyelitis Current Visit: Yes Status: Acute Assessment & Plan: Plan is for discharge today with antibiotics, wound care, and analgesia per podiatry. Code(s): M86.9 - OSTEOMYELITIS, UNSPECIFIED Telemedicine Encounter - Telemedicine Encounter Telemedicine Encounter: The entirety of this encounter was performed via Telemedicine" - Discharge Disposition: Home, Self-Care Condition: Stable Prescriptions: New Smz/Tmp Ds Tablet [Bactrim Ds Tablet] 1 tab PO Q12H 10 Days #20 tablet Ciprofloxacin [Cipro 500 MG] 500 mg PO BID 7 Days #14 tablet Aspirin EC 325 mg [Ecotrin 325 MG] 325 mg PO DAILY 30 Days #30 tab Hydrocodone/Acetaminophen [Hydrocodone-Acetamin 7.5-325] 1 each PO Q6H 7 Days #28 tablet MDD 4 No Action Potassium Chloride Tab* [Klor Con] 10 meq PO DAILY lisinopriL [Lisinopril] 40 mg PO DAILY Furosemide 20 mg [Lasix 20 mg] 20 mg PO DAILY Duloxetine HCl [Cymbalta] 30 mg PO HS Rizatriptan Benzoate [Rizatriptan] 10 mg PO DAILY PRN PRN PRN Reason: Headache Pravastatin Sodium 20 mg PO DAILY Bupropion HCl Xl 150 mg [Wellbutrin XL 150 MG] 150 mg PO BID Fenofibrate,Micronized 145 mg* [Tricor 145 MG] 145 mg PO DAILY Sitagliptin Phosphate 50 MG [Januvia 50 MG] 100 mg PO DAILY Guaifenesin 600 mg ER [Mucinex 600MG ER Tabs] 1,200 mg PO DAILY PRN PRN PRN Reason: Sinus Congestion Semaglutide [Ozempic] 0.5 mg PO WEEKLY Pregabalin 50 mg [Lyrica 50MG] 50 mg PO BID Instructions: Type 2 diabetes, Ciprofloxacin (Systemic), Sulfamethoxazole and Trimethoprim, How to Use a Walker Additional Instructions: FOLLOW DR. MCDONALD INSTRUCTIONS PREVIOUSLY GIVEN FOR WOUND CARE. PARTIAL-HEEL WEIGHT BEARING ON LEFT FOOT. Follow up with: TAMARA GIRALDO DPM [ACTIVE STAFF] - 11/09/22 1:30 pm QUETA OJEDA NP [Primary Care Provider] - 11/14/22 9:00 am
--- NOTE | 2022-11-03 14:49 | OP ---
SURGERY DATE/TIME: 11/03/2022 0851 PREOPERATIVE DIAGNOSES: 1) Diabetes mellitus. 2) Diabetic peripheral neuropathy. 3) Diabetic foot ulcer. 4) Osteomyelitis left foot. 5) Left foot pain. POSTOPERATIVE DIAGNOSES: 1) Diabetes mellitus. 2) Diabetic peripheral neuropathy. 3) Diabetic foot ulcer. 4) Osteomyelitis left foot. 5) Left foot pain. PROCEDURE: Incision and drainage with bone debridement left foot as well as delayed primary closure. SURGEON: Dilan Almaraz DPM. STEAMBOAT INSPECTOR: None. ANESTHESIA: Monitored anesthesia care with Patiño block postoperatively. HEMOSTASIS: Pressure dressing. ESTIMATED BLOOD LOSS: Approximately 10 cc. MATERIALS: 4-0 Monocryl, 3-0 Nylon. INJECTABLES: 20 cc of 1:1 mixture of 1% lidocaine plain and 0.5% bupivacaine plain injected in a Patiño block-type fashion to left foot. INDICATION FOR SURGERY: This is the second stage to a two stage procedure for Crystal after an amputation of the left hallux that was left open. The patient progressed without complication over the course of the last week with amputation and resolution of cellulitis. Still waiting on the bone biopsy at this time however fairly confident based on patient's previous history that this will demonstrate osteomyelitis. When MRI was taken there was a significant amount of artifact from the surgery that she had back in March 2022. The patient at this time understands all risks, complications and benefits of surgical intervention including but not limited to infection, hematoma, seroma, possibility of delayed wound healing, nonwound healing, possible need for surgical intervention at a later date. No guarantees have been provided as to the outcome of surgery at this time. It is with that we decided to proceed. DESCRIPTION OF PROCEDURE AND FINDINGS: The patient is brought into the OR and placed on the OR table in the supine position. The patient was placed under MAC sedation until well sedated. The left lower extremity is prepped and draped in the typical sterile fashion and lowered onto the surgical field. At this time attention was directed to the op site where previous sutures were removed. The wound was inspected. Some of the necrotic edge and nonviable edge was resected utilizing 15 blade. At this time healthy bleeding edge was visualized. Remodeling of the anterior aspect of the foot was performed at this time in order to compensate for any dog ears. Following this the deep area of the wound was assessed and debrided the nonviable bone as well as the nonviable cartilage and resect any residual tendon in the area to prevent tracking of any soft tissue infection further proximally. At this time 3 liter bag of sterile saline was utilized in a Pulsavac to flush the surgical site with copious amounts of sterile saline. Following this, bone biopsy was taken of the distal and dorsal aspect of the first metatarsal and sent for pathologic assessment. At this time 4-0 Monocryl was utilized coapt the subcutaneous skin edges in simple buried-type fashion and then 3-0 Nylon was utilized in a horizontal mattress-type fashion to michelle the skin edges until the incision was coapt under minimal tension. Following this a dressing consisting of Betadine, Adaptic, 4x4, Kerlix and DARA was applied to the patient's left lower extremity with the foot orthogonal to longitudinal axis of the left lower extremity. The patient was then reversed from anesthesia returned to the postoperative anesthesia care unit with vital signs and vascular status intact. The patient handled the anesthesia as well as the procedure without significant complication. Postoperative orders as indicated in the patient's discharge chart.
[2022-11-03] MEDS ORDERED: BACTRIM DS TABLET PO SCH (22:00)
== END 2022-11-03 13:13 | disposition home or self-care (01) | DRG 502 ==
LOC: MED SURG 16:05
PROVIDERS: ADMIT Internal Medicine; ATTEND Internal Medicine
PROC: 0Y6Q0Z0 Detachment at Left 1st Toe, Complete, Open Approach (ICD-10-PCS; principal; 2022-10-31)
PROC: 0JQR0ZZ Repair Left Foot Subcutaneous Tissue and Fascia, Open Approach (ICD-10-PCS; 2022-11-03)
PROC: 0J9R0ZZ Drainage of Left Foot Subcutaneous Tissue and Fascia, Open Approach (ICD-10-PCS; 2022-11-03)
DX: M86.172 Other acute osteomyelitis, left ankle and foot (principal); M79.672 Pain in left foot; E11.621 Type 2 diabetes mellitus with foot ulcer; M20.32 Hallux varus (acquired), left foot; M20.42 Other hammer toe(s) (acquired), left foot; R26.2 Difficulty in walking, not elsewhere classified; E11.40 Type 2 diabetes mellitus with diabetic neuropathy, unspecified; M21.172 Varus deformity, not elsewhere classified, left ankle; I10 Essential (primary) hypertension; L03.032 Cellulitis of left toe; T79.6XXA Traumatic ischemia of muscle, initial encounter; F32.A Depression, unspecified; Z20.828 Contact with and (suspected) exposure to other viral communicable diseases; Z79.899 Other long term (current) drug therapy
CPT/HCPCS: 13160; 28005; 28810; 36415; 73630; 76000; 80047; 80053; 82040; 82247; 82550; 82570; 82947; 83521; 83605; 84075; 84300; 84450; 84460; 84540; 85025; 85610; 85652; 85730; 86140; 87040; 87070; 99213; 99232; A6260; J0878; J1100; J1650; J1817; J1885; J2001; J2250; J2370; J2405; J2704; J3010; Q3014; A9270-GY